=== PATIENT | female | born 1955 | race Caucasian/White ===

== ENCOUNTER 2016-11-01 22:22 | Inpatient (IN) | payer BC ==
[~2016-11-01] VITALS: Ht 154.9 cm; Wt 86.0 kg
[~2016-11-01 22:22] MED LIST: PROM25TA5 PO; Z.0.NO CURRENT MEDS
[2016-11-01 22:24] VITALS: BP 132/83; PULSE 116; RESP 18; TEMP 99.5; O2SAT 96
[2016-11-01] MEDS ORDERED: CALC1TAB87 PO (22:41)
[2016-11-01] MEDS ORDERED: ALEV220T14 PO (22:41)
[2016-11-01 22:43] VITALS: BP 122/72; PULSE 124; RESP 18; O2SAT 95
[2016-11-01] MEDS ORDERED: ACETAMINOPHEN 325 MG TAB PO ONE (22:45)
[2016-11-01] MEDS ORDERED: SODIUM CHLOR 0.9% 1000 ML INJ 1,000 ML IV ONE ×2 (22:45→23:52)
[2016-11-01] MEDS ORDERED: MORPHINE SULFATE 8 MG/ML INJ IV PUSH ONE (22:45)
--- NOTE | 2016-11-01 23:00 | PD ---
HPI . Chills Chief Complaint: General Weakness Time Seen by Provider: 22:35 Travel History International Travel<30 days: No Contact w/Intl Traveler<30days: No Traveled to known affect area: No History of Present Illness HPI Patient presents with chief complaint of shaking chills. Onset was about 30 minutes prior to presentation. The patient states that she had a pain in the middle of her back and stretched. She had the onset of shaking chills following the stretching. She really doesn't have any other symptoms. She denies any cold symptoms. She reports chronic shortness of breath but no change in her breathing and no cough. She denies any urinary tract symptoms. She denies any GI symptoms. She notes no exacerbating or relieving factors. She reports that the chills are severe. [facility] Past Medical History Headaches: Yes Musculoskeletal: Yes (OSTEOPOROSIS) ?: Not Menopausal: Yes Tubal Ligation: Yes Past Surgical History Cholecystectomy: Yes Social History Alcohol Use: No Tobacco Use: Yes (E CIG) Substance Use: No Allergies-Medications (Allergen,Severity, Reaction): Coded Allergies: No Known Allergies (Verified , 11/01/16) Reported Meds & Prescriptions Reported Meds & Active Scripts Active Reported Calcium 600 with Vitamin D (Calcium Carbonate-Cholecalciferol) 600-400 mg-Unit Tab 1 Tab PO DAILY Aleve Arthritis (Naproxen Sodium) 220 Mg Tab 220 Mg PO BID Review of Systems Except as stated in HPI: all other systems reviewed are Neg General / Constitutional: Positive: Chills, No: Fever Eyes: No: Drainage, Redness HENT: No: Headaches, Sore Throat, Rhinorrhea, Congestion Cardiovascular: No: Chest Pain or Discomfort Respiratory: Positive: Shortness of Breath, No: Cough Gastrointestinal: No: Nausea, Vomiting, Diarrhea, Abdominal Pain Genitourinary: No: Urgency, Frequency, Dysuria Musculoskeletal: Positive: Myalgias (back pain) Physical Exam Narrative Vital Signs Date Time Temp Pulse Resp B/P Pulse Ox O2 Delivery O2 Flow Rate FiO2 11/01/16 22:35 120 18 96 11/01/16 22:24 99.5 116 18 132/83 96 GENERAL: Patient is awake and alert and in no acute distress. SKIN: Warm and dry. HEAD: Atraumatic. Normocephalic. EYES: Pupils equal and round. Extraocular movements are intact. ENT: No nasal bleeding or discharge. Mucous membranes pink and moist. NECK: Trachea midline. Neck is supple. CARDIOVASCULAR: She has a resting tachycardia. Heart sounds are normal. RESPIRATORY: No accessory muscle use. She is hyperventilating. GASTROINTESTINAL: Abdomen soft, non-tender, nondistended. MUSCULOSKELETAL: No obvious deformities. No edema. NEUROLOGICAL: Awake and alert. No obvious cranial nerve deficits. Motor grossly within normal limits. Normal speech. PSYCHIATRIC: Appropriate mood and affect; insight and judgment normal. Data Data Last Documented VS Vital Signs Date Time Temp Pulse Resp B/P Pulse Ox O2 Delivery O2 Flow Rate FiO2 11/01/16 22:35 120 18 96 11/01/16 22:24 99.5 132/83 Orders Complete Blood Count With Diff (11/01/16 22:40) Comprehensive Metabolic Panel (11/01/16 22:40) Lactic Acid Sepsis Protocol (11/01/16 22:40) Urinalysis - C+S If Indicated (11/01/16 22:40) Blood Culture (11/01/16 22:40) Chest, Single Ap (11/01/16 22:40) Iv Access Insert/Monitor (11/01/16 22:40) Acetaminophen (Tylenol) (11/01/16 22:45) Sodium Chlor 0.9% 1000 Ml Inj (Ns 1000 M (11/01/16 22:45) Morphine Inj (Morphine Inj) (11/01/16 22:45) MDM Medical Decision Making Medical Screen Exam Complete: Yes Emergency Medical Condition: Yes Differential Diagnosis Differential diagnosis of fever includes but is not limited to viral illness, strep throat, otitis media, pneumonia, sepsis, UTI Narrative Course This patient presents with chief complaint of the acute onset of shaking chills. I have ordered a septic workup. Her care is being turned over to Dr. Nj pending her septic workup. Sepsis Criteria SIRS Criteria (2 or more): Heart rate over 90 Diagnosis Primary Impression: Chills Condition: Stable Charlee Bob MD Nov 01, 2016 23:00
--- NOTE | 2016-11-01 23:31 | RADRPT ---
EXAM DATE/TIME: 11/01/2016 22:46 [place] COMPARISON: No previous studies available for comparison. INDICATIONS : Shortness of breath. MEDICAL HISTORY : None. SURGICAL HISTORY : None. ENCOUNTER: Initial ACUITY: 1 day PAIN SCORE: 0/10 LOCATION: Bilateral chest FINDINGS: A single view of the chest demonstrates the lungs to be symmetrically aerated without evidence of mas s, infiltrate or effusion. The cardiomediastinal contours are unremarkable. Osseous structures are intact. CONCLUSION: No acute intrathoracic disease. Loco Root MD on November 01, 2016 at 23:30 Board Certified Radiologist. This report was verified electronically.
[2016-11-01 23:38] LABS: AUTOMATED NEUTROPHIL # 12.9 TH/MM3 (1.8-7.7); BASOPHIL # 0.2 TH/MM3 (0-0.2); BASOPHIL % 1.6 % (0.0-2.0); EOSINOPHIL # 0.1 TH/MM3 (0-0.4); EOSINOPHIL % 0.7 % (0.0-4.0); HEMATOCRIT 44.5 % (35.0-46.0); LYMPH % 8.9 % (9.0-44.0); LYMPHOCYTE # 1.3 TH/MM3 (1.0-4.8); MEAN CELL VOLUME 89.9 FL (80.0-100.0); MEAN CORPUSCULAR HEMOGLOBIN 29.6 PG (27.0-34.0); MEAN CORPUSCULAR HGB CONC 32.9 % (32.0-36.0); MONO % 1.6 % (0.0-8.0); NEUT % 87.2 % (16.0-70.0); PLATELET COUNT 231 TH/MM3 (150-450); RED BLOOD COUNT 4.94 MIL/MM3 (4.00-5.30); RED CELL DISTRIBUTION WIDTH 13.3 % (11.6-17.2); WHITE BLOOD COUNT 14.7 TH/MM3 (4.0-11.0)
[2016-11-01 23:43] VITALS: BP 78/56; PULSE 110; RESP 18; TEMP 99.4; O2SAT 94
[2016-11-01 23:46] LABS: HEMO FLAGS AUTO DIFF
[2016-11-01 23:46] LABS: BLOOD, URINE NEG (NEG); GLUCOSE,URINE NEG (NEG); KETONE, URINE NEG (NEG); NITRITE,URINE NEG (NEG); PH, URINE 5.5 (5.0-8.5)
[2016-11-01 23:47] VITALS: BP 86/59; PULSE 112; RESP 16; O2SAT 94
[2016-11-01 23:51] LABS: METHOD OF COLLECTION CLEAN CATCH; URINE COLOR YELLOW (YELLW/STRAW)
[2016-11-01 23:52] LABS: MUCUS URINE OCC /lpf (OCC)
[2016-11-01] MEDS ORDERED: SODIUM CHLOR 0.9% 1000 ML INJ 700 ML IV ONE (23:52)
[2016-11-01 23:53] LABS: CHLORIDE 112 MEQ/L (98-107); POTASSIUM 3.8 MEQ/L (3.5-5.1); SODIUM (NA) 145 MEQ/L (136-145)
[2016-11-01 23:53] LABS: BACTERIA, URINE MANY /hpf; COMMENT (UR) CULTURE INDICATED; CULTURE IF INDICATED CULTURE INDICATED; SQUAMOUS EPITHELIAL CELL URINE 0-5 /hpf (0-5); WBC, URINE 15-19 /hpf (0-5)
[2016-11-01 23:56] LABS: ANION GAP 7 MEQ/L (5-15); BICARBONATE 25.9 MEQ/L (21.0-32.0)
[2016-11-01 23:57] LABS: BLOOD UREA NITROGEN 12 MG/DL (7-18)
[2016-11-01 23:59] LABS: ALT (GPT) 22 U/L (10-53)
[2016-11-02] VITALS (17 sets, daily range): BP systolic 68–154; BP diastolic 51–92; PULSE 84–98; RESP 16–20; TEMP 97–98.7; O2SAT 93–97
[2016-11-02] LABS: AST (GOT) 16 U/L (15-37); GLOMERULAR FILTRATION RATE 61 ML/MIN (>89)
[2016-11-02] MEDS ORDERED: cefTRIAXone INJ 1,000 MG in SODIUM CHLORIDE 0.9% INJ 100 ML IV ONE ×2
[2016-11-02 00:01] LABS: TOTAL BILIRUBIN ADULT 0.3 MG/DL (0.2-1.0)
[2016-11-02 00:02] LABS: ALKALINE PHOSPHATASE 109 U/L (45-117)
[2016-11-02 00:03] LABS: BANDS 5 % (0-6); BASOPHILS 1 % (0-2); NEUTROPHIL # MANUAL DIFF 13.4 TH/MM3 (1.8-7.7); POLYS (SEG NEUTROPHILS) 86 % (16-70); WBC DIFF SAMPLE 100
[2016-11-02 00:04] LABS: PLATELET ESTIMATE SMEAR NORMAL (NORMAL); PLATELET MORPHOLOGY NORMAL (NORMAL); SCAN/DIFF FINAL DIFF MANUAL
[2016-11-02] MEDS ORDERED: SODIUM CHLORIDE 0.9% FLUSH 10 ML FLUSH IV FLUSH PRN (01:15)
[2016-11-02] MEDS ORDERED: NALOXONE HCL 0.4 MG/ML AMP IV PRN (01:15)
[2016-11-02 01:26] LABS: LACTIC ACID GHOST NOT REPORTABLE
[2016-11-02] MEDS ORDERED: SODIUM CHLOR 0.9% 1000 ML INJ 1,000 ML IV ONE (02:15)
[2016-11-02] MEDS: SODIUM CHLORIDE 0.9% FLUSH 10 ML FLUSH IV FLUSH SCH ×2 (08:36→20:15)
--- NOTE | 2016-11-02 08:54 | HHI.HP ---
[facility] Latasha Pitt Admission Diagnosis sepsis, pyelonephritis Diagnoses: (1) Severe sepsis Diagnosis: Principal (2) Pyelonephritis Diagnosis: Principal (3) Leukocytosis Diagnosis: Principal (4) Hyperglycemia Diagnosis: Principal Chief Complaint: Rigors Travel History International Travel<30 Days: No Contact w/Intl Traveler <30 Da: No Traveled to Known Affected Are: No Sepsis Criteria SIRS Criteria (2 or more): Heart rate over 90, WBC > 27616, < 4000 or > 10% bands Sepsis Criteria (SIRS+source): Infect source susp/known Severe Sepsis (+one): Lactate >2 Criteria Outcome: Meets severe sepsis criteria History of Present Illness Written by Frankie Wang, acting as scribe for Dr. Mayes on 11/02/16 at 10: 22. 61-year-old female with known history of hyperlipidemia, right carotid stenosis who presented to the hospital because of rigors. Patient states that over the last 2 weeks she has been having back pain that is worsened whenever she is sitting without support. She states that the pain is intermittent and she does get episodes of sharp stabbing pain that last for a couple seconds at a time. Patient does have history of hyperlipidemia in which she recently started on statin approximately one month ago. The patient does have urinary incontinence when she has noticed mild worsening over the last couple weeks as well. Patient was sitting in a chair working yesterday and she went to stretch her back because she was having pain in her lower left back and she developed sudden rigors. Because of the rigors she came to the hospital for evaluation. Patient found to have multiple abnormalities to include leukocytosis, tachycardia, urinary tract infection, lactic acid level elevation which meets criteria for severe sepsis. Because of those reasons is recommended by ER physician that the patient be admitted for further evaluation and management. Patient denied any fever, cough, congestion, abdominal pain, dysuria. Review of Systems Constitutional: COMPLAINS OF: Chills, DENIES: Diaphoretic episodes, Fatigue, Fever, Weight gain, Weight loss, Dizziness, Change in appetite, Night Sweats Eyes: DENIES: Blurred vision, Diplopia, Eye inflammation, Eye pain, Vision loss , Double Vision Ears, nose, mouth, throat: COMPLAINS OF: Vertigo, DENIES: Hearing loss, Nasal discharge, Throat pain, Ear Pain, Running Nose, Sinus Pain Respiratory: DENIES: Apneas, Cough, Snoring, Wheezing, Hemoptysis, Sputum production, Shortness of breath Cardiovascular: DENIES: Chest pain, Palpitations, Syncope, Dyspnea on Exertion , PND, Lower Extremity Edema, Orthopnea, Claudication Gastrointestinal: DENIES: Abdominal pain, Black stools, Bloody stools, Constipation, Diarrhea, Nausea, Vomiting, Difficulty Swallowing, Anorexia Genitourinary: COMPLAINS OF: Urinary frequency Musculoskeletal: COMPLAINS OF: Back pain Neurologic: DENIES: Abnormal gait, Headache, Localized weakness, Paresthesias, Speech Problems, Tremor, Poor Balance Past Family Social History Past Medical History Right carotid stenosis Hyperlipidemia History of tobacco use Urinary incontinence Osteoporosis Past Surgical History Tubal ligation Cholecystectomy Reported Medications Reported Meds & Active Scripts Active Reported Calcium 600 with Vitamin D (Calcium Carbonate-Cholecalciferol) 600-400 mg-Unit Tab 1 Tab PO DAILY Aleve Arthritis (Naproxen Sodium) 220 Mg Tab 220 Mg PO BID Allergies: Coded Allergies: No Known Allergies (Verified , 11/01/16) Family History Reviewed is significant for lung disease, COPD with mother and brothers. All with history of tobacco use. Social History Patient quit smoking 3 years ago, prior to that she smoked one pack a cigarettes a day since she was 14 years old. Denies any alcohol or illicit drugs Physical Exam Vital Signs Vital Signs Date Time Temp Pulse Resp B/P Pulse Ox O2 Delivery O2 Flow Rate FiO2 11/02/16 08:00 97.0 85 18 126/67 96 11/02/16 03:38 84 11/02/16 03:30 98.0 84 20 119/63 93 11/02/16 02:51 16 130/58 95 Room Air 11/02/16 02:49 88 16 81/53 96 Room Air 11/02/16 02:48 88 16 124/58 95 Room Air 11/02/16 02:42 92 16 68/58 95 Room Air 11/02/16 02:13 98.4 95 16 100/70 95 Room Air 11/02/16 02:00 94 16 95 11/02/16 01:50 92 16 93/51 95 Room Air 11/02/16 01:13 94 16 94/59 95 Room Air 11/02/16 00:43 94 16 99/72 95 Room Air 11/02/16 00:24 97 16 97/67 96 Room Air 11/02/16 00:13 98 16 89/60 95 Room Air 11/01/16 23:47 112 16 86/59 94 Room Air 11/01/16 23:43 99.4 110 18 78/56 94 Room Air 11/01/16 22:43 124 18 122/72 95 Room Air 11/01/16 22:35 120 18 96 11/01/16 22:24 99.5 116 18 132/83 96 Physical Exam GENERAL: Well-developed, well-nourished, in no acute distress. alert and orientated HEENT: Head is normocephalic without any lesions or masses noted. Facial features are symmetric. Eyes: Pupils equal round reactive to light. Extraocular muscles are intact. Conjunctivae were clear. Oropharyngeal: Pharynx without any erythema edema. Tongue is midline without deviation. Buccal mucosa is moist without any masses or lesions NECK: Supple without any masses. Trachea midline no deviation. No JVD, no bruits are appreciated CARDIAC: Regular rhythm, regular rate. S1/S2 are heard. No murmurs gallops or rubs. LUNGS: Clear to auscultation bilaterally. No wheeze, rhonchi or rales. No use of accessory muscles on inspiration or expiration. ABDOMEN: Soft, nontender. Nondistended. Bowel sounds heard in all 4 quadrants. No organomegaly or masses. Negative rebound, negative guarding EXTREMITIES: No edema, pulses are equal bilaterally. No cyanosis or clubbing NEUROLOGY: Mood and affect appear appropriate. Cranial nerves II through XII grossly intact. Muscle strength 5/5 in upper and lower extremities bilaterally. Deep tendon reflexes are 2+ in upper and lower extremities bilaterally. Laboratory Laboratory Tests Test 11/01/16 11/01/16 11/01/16 11/02/16 22:55 23:05 23:38 01:45 Urine Collection Type CLEAN CATCH Urine Color YELLOW Urine Turbidity SLIGHT Urine pH 5.5 Urine Specific [place] 1.018 Urine Protein TRACE Urine Glucose (UA) NEG Urine Ketones NEG Urine Occult Blood NEG Urine Nitrite NEG Urine Bilirubin NEG Urine Leukocyte Esterase TRACE Urine WBC 15-19 Urine WBC Clumps OCC Urine Squamous Epithelial 0-5 Cells Urine Bacteria MANY Urine Mucus OCC Microscopic Urinalysis Comment CULTURE INDICATED White Blood Count 14.7 Red Blood Count 4.94 Hemoglobin 14.6 Hematocrit 44.5 Mean Corpuscular Volume 89.9 Mean Corpuscular Hemoglobin 29.6 Mean Corpuscular Hemoglobin 32.9 Concent Red Cell Distribution Width 13.3 Platelet Count 231 Mean Platelet Volume 10.6 Neutrophils (%) (Auto) 87.2 Lymphocytes (%) (Auto) 8.9 Monocytes (%) (Auto) 1.6 Eosinophils (%) (Auto) 0.7 Basophils (%) (Auto) 1.6 Neutrophils # (Auto) 12.9 Lymphocytes # (Auto) 1.3 Monocytes # (Auto) 0.2 Eosinophils # (Auto) 0.1 Basophils # (Auto) 0.2 CBC Comment AUTO DIFF Differential Total Cells 100 Counted Neutrophils % (Manual) 86 Band Neutrophils % 5 Lymphocytes % 6 Monocytes % 2 Basophils % 1 Neutrophils # (Manual) 13.4 Differential Comment FINAL DIFF MANUAL Platelet Estimate NORMAL Platelet Morphology Comment NORMAL Red Cell Morphology Comment NORMAL Lactic Acid Level 2.1 1.5 Sodium Level 145 Potassium Level 3.8 Chloride Level 112 Carbon Dioxide Level 25.9 Anion Gap 7 Blood Urea Nitrogen 12 Creatinine 0.93 Estimat Glomerular Filtration 61 Rate Random Glucose 153 Calcium Level 8.7 Total Bilirubin 0.3 Aspartate Amino Transf 16 (AST/SGOT) Alanine Aminotransferase 22 (ALT/SGPT) Alkaline Phosphatase 109 Total Protein 6.5 Albumin 3.1 Date/Time Procedure Status Source Growth 11/01/16 23:32 Aerobic Blood Culture Received Blood Peripheral Pending 11/01/16 23:32 Anaerobic Blood Culture Received Blood Peripheral Pending 11/01/16 22:55 Urine Culture Received Urine Clean Catch Pending Result Diagram: 11/01/16 2305 11/01/16 2338 Imaging Last Impressions Chest X-Ray 11/01/16 2240 Signed Impressions: Service Date/Time: Tuesday, November 01, 2016 22:46 - CONCLUSION: No acute intrathoracic disease. Loco Root MD Septic Shock Reassessment Heart: Regular rate and rhythm Lungs: Clear Skin: Warm Peripheral Pulses: Bounding Right Radial Bounding Left Radial Capillary Refill: Brisk, <2 seconds Assessment and Plan Assessment and Plan Severe sepsis Patient meets criteria with leukocytosis, tachycardia, urinary tract infection , likely pyelonephritis, lactic acidosis Patient did have hypotension on presentation and received 3 L of normal saline bolus with improvement of blood pressure Continue IV fluid Patient started on empirical antibiotics to include Rocephin Chest x-ray is unremarkable for any acute abnormality Blood cultures are pending Urine culture is pending UTI suspect Pyelonephritis Continue antibiotics as above Continue monitor urine culture for appropriate antibiotics Leukocytosis Secondary to above Monitor CBC Hyperglycemia Obtain hemoglobin A1c Monitor glucoses start sliding scale insulin if needed Hyperlipidemia Resume statin DVT prevention Subcutaneous Lovenox This note was transcribed by scribe [Frankie Wang]. I, Dr. Paul Mayes personally performed the history, physical exam, and medical decision making; and confirmed the accuracy of the information in the transcribed note. Authenticated by Dr. Paul Mayes on 11/02/16 at 17:41. Physician Certification 2 Midnight Certification Type: Admission for Inpatient Services Order for Inpatient Services The services are ordered in accordance with Medicare regulations or non- Medicare payer requirements, as applicable. In the case of services not specified as inpatient-only, they are appropriately provided as inpatient services in accordance with the 2-midnight benchmark. Estimated LOS (days): 2 days is the estimated time the patient will need to remain in the hospital, assuming treatment plan goals are met and no additional complications. Post-Hospital Plan: Not yet determined Frankie Wang Nov 02, 2016 08:54 Paul Mayes MD Nov 02, 2016 17:41
[2016-11-02] MEDS ORDERED: MAGNESIUM HYDROXIDE SUSP 30 ML CUP PO PRN (09:00)
[2016-11-02] MEDS ORDERED: DOCUSATE SODIUM 100 MG CAP PO PRN (09:00)
[2016-11-02] MEDS ORDERED: ONDANSETRON HCL 4 MG/2 ML VIAL IV PRN (09:00)
[2016-11-02] MEDS ORDERED: TEMAZEPAM 15 MG CAP PO PRN (09:00)
[2016-11-02] MEDS ORDERED: ACETAMINOPHEN 325 MG TAB PO PRN (09:00)
[2016-11-02 09:39] LABS: AUTOMATED NEUTROPHIL # 8.1 TH/MM3 (1.8-7.7); BASOPHIL % 0.4 % (0.0-2.0); EOSINOPHIL # 0.1 TH/MM3 (0-0.4); EOSINOPHIL % 1.3 % (0.0-4.0); HEMATOCRIT 39.7 % (35.0-46.0); HEMO FLAGS DIFF FINAL; LYMPH % 21.3 % (9.0-44.0); LYMPHOCYTE # 2.4 TH/MM3 (1.0-4.8); MEAN CELL VOLUME 90.1 FL (80.0-100.0); MEAN CORPUSCULAR HEMOGLOBIN 29.7 PG (27.0-34.0); MEAN CORPUSCULAR HGB CONC 32.9 % (32.0-36.0); MONO % 5.7 % (0.0-8.0); NEUT % 71.3 % (16.0-70.0); PLATELET COUNT 208 TH/MM3 (150-450); RED CELL DISTRIBUTION WIDTH 13.4 % (11.6-17.2); WHITE BLOOD COUNT 11.2 TH/MM3 (4.0-11.0)
[2016-11-02] MEDS: NS + KCL 20 MEQ INJ 1,000 ML IV SCH ×2 (09:41→20:15)
[2016-11-02] MEDS: ENOXAPARIN SODIUM 40 MG/0.4 ML SYRINGE SQ SCH (09:42)
[2016-11-02] MEDS: cefTRIAXone INJ 1,000 MG in SODIUM CHLORIDE 0.9% INJ 100 ML IV SCH (13:49)
[2016-11-02 16:01] LABS: HEMOGLOBIN A1b 1.7 %; HEMOGLOBIN Ao 85.5 %; HEMOGLOBIN LA1C 1.8 %; HEMOGLOBIN P3 3.7 %
[2016-11-02] MEDS: traMADol HCL 50 MG TAB PO PRN (17:27)
[2016-11-02] MEDS: CALCIUM CARBONATE 500 MG CHEWABLE TAB CHEW SCH (20:15)
[2016-11-03] VITALS: BP 119/62; PULSE 84; RESP 18; TEMP 97.3; O2SAT 95
[2016-11-03] MEDS: cefTRIAXone INJ 1,000 MG in SODIUM CHLORIDE 0.9% INJ 100 ML IV SCH (00:35)
[2016-11-03 04:00] VITALS: BP 111/69; PULSE 88; RESP 18; TEMP 97.1; O2SAT 95
[2016-11-03 06:37] LABS: AUTOMATED NEUTROPHIL # 3.9 TH/MM3 (1.8-7.7); BASOPHIL % 0.5 % (0.0-2.0); EOSINOPHIL # 0.1 TH/MM3 (0-0.4); EOSINOPHIL % 0.9 % (0.0-4.0); HEMATOCRIT 38.5 % (35.0-46.0); HEMO FLAGS DIFF FINAL; LYMPH % 35.2 % (9.0-44.0); LYMPHOCYTE # 2.5 TH/MM3 (1.0-4.8); MEAN CELL VOLUME 89.1 FL (80.0-100.0); MEAN CORPUSCULAR HEMOGLOBIN 29.5 PG (27.0-34.0); MEAN CORPUSCULAR HGB CONC 33.1 % (32.0-36.0); MONO % 8.5 % (0.0-8.0); NEUT % 54.9 % (16.0-70.0); PLATELET COUNT 176 TH/MM3 (150-450); RED BLOOD COUNT 4.33 MIL/MM3 (4.00-5.30); RED CELL DISTRIBUTION WIDTH 12.9 % (11.6-17.2); WHITE BLOOD COUNT 7.1 TH/MM3 (4.0-11.0)
[2016-11-03 06:55] LABS: BICARBONATE 24.2 MEQ/L (21.0-32.0)
[2016-11-03 08:00] VITALS: PULSE 88
[2016-11-03] MEDS: NS + KCL 20 MEQ INJ 1,000 ML IV SCH (08:50)
--- NOTE | 2016-11-03 08:52 | HHI.PR ---
Subjective Remarks feels better today. pain has much improved. no fever or chills. wants to go home today. Objective Vitals Vital Signs Date Time Temp Pulse Resp B/P Pulse Ox O2 Delivery O2 Flow Rate FiO2 11/03/16 04:00 97.1 88 18 111/69 95 11/03/16 00:00 97.3 84 18 119/62 95 11/02/16 20:14 93 11/02/16 20:00 98.2 89 18 132/66 95 11/02/16 16:00 98.7 93 18 154/92 97 11/02/16 12:00 97.8 89 18 139/72 96 I/O 11/02/16 11/02/16 11/02/16 11/03/16 11/03/16 11/03/16 07:00 15:00 23:00 07:00 15:00 23:00 Intake Total 3800 ml 480 ml 219 ml 690 ml Balance 3800 ml 480 ml 219 ml 690 ml Intake Oral 480 ml IV Total 3800 ml 219 ml 690 ml # Voids 1 6 1 # Bowel Movements 0 Result Diagram: 11/03/16 0540 11/03/16 0540 Imaging Last Impressions Chest X-Ray 11/01/16 2240 Signed Impressions: Service Date/Time: Tuesday, November 01, 2016 22:46 - CONCLUSION: No acute intrathoracic disease. Loco Root MD Objective Remarks GENERAL: This is a well-nourished, well-developed patient, in no apparent distress. CARDIOVASCULAR: Regular rate and regular rhythm without murmurs, gallops, or rubs. RESPIRATORY: Clear to auscultation. Breath sounds equal bilaterally. No wheezes , rales, or rhonchi. GASTROINTESTINAL: Abdomen soft, non-tender, nondistended. Normal, active bowel sounds MUSCULOSKELETAL: Extremities without clubbing, cyanosis, or edema. NEURO: Alert & Oriented x4 to person, place, time, situation. Moves all ext x4 Procedures none Medications and IVs Current Medications Acetaminophen 650 mg 650 mg ONCE ONCE PO Last administered on 11/01/16t 23:21 ; Start 11/01/16 at 22:45; Stop 11/01/16 at 22:46; Status DC Sodium Chloride (NS 1000 ml Inj) 1,000 ml @ 999 mls/hr BOLUS ONCE IV Last administered on 11/01/16 23:20; Start 11/01/16 at 22:45; Stop 11/01/16 at 23:45 ; Status DC Morphine Sulfate 4 mg 4 mg ONCE ONCE IV PUSH ; Start 11/01/16 at 22:45; Stop at 23:54; Status DC Sodium Chloride 1,000 ml @ 1,000 mls/hr Q1H ONCE IV Last administered on 23:56; Start 11/01/16 at 23:52; Stop 11/02/16 at 00:51; Status DC Sodium Chloride 700 ml @ 1,000 mls/hr Q42M ONCE IV Last administered on 00:23; Start 11/01/16 at 23:52; Stop 11/02/16 at 00:33; Status DC Ceftriaxone Sodium/Sodium Chloride (Rocephin Inj/NS Inj) 100 ml @ 200 mls/hr ONCE ONCE IV Last administered on 11/02/16 00:24; Start 11/02/16 at 00:00; Stop 11/02/16 at 00:29; Status DC Sodium Chloride (NS Flush) 2 ml UNSCH PRN IV FLUSH FLUSH AFTER USING IV ACCESS ; Start 11/02/16 at 01:15 Sodium Chloride (NS Flush) 2 ml BID IV FLUSH ; Start 11/02/16 at 09:00 Naloxone HCl 0.4 mg 0.4 mg UNSCH PRN IV SEE LABEL COMMENTS; Start 11/02/16 at 01:15 Ceftriaxone Sodium 1000 mg/ Sodium Chloride 100 ml @ 200 mls/hr Q12H IV Last administered on 11/03/16 00:35; Start 11/02/16 at 13:00 Sodium Chloride (NS 1000 ml Inj) 1,000 ml @ 999 mls/hr BOLUS ONCE IV Last administered on 11/02/16 02:10; Start 11/02/16 at 02:15; Stop 11/02/16 at 03:15 ; Status DC Enoxaparin Sodium (Lovenox Inj) 40 mg Q24H SQ Last administered on 11/02/16 09 :42; Start 11/02/16 at 09:00 Acetaminophen (Tylenol) 650 mg Q4H PRN PO Temp > 100.4 Last administered on 7/ 19/17at 00:36; Start 11/02/16 at 09:00 Ondansetron HCl (Zofran Inj) 4 mg Q6H PRN IV NAUSEA Last administered on 17:27; Start 11/02/16 at 09:00 Docusate Sodium (Colace) 100 mg BID PRN PO CONSTIPATION; Start 11/02/16 at 09: 00 Magnesium Hydroxide (Milk Of Magnesia Liq) 30 ml DAILY PRN PO for Severe Constipation; Start 11/02/16 at 09:00 Temazepam 15 mg 15 mg HS PRN PO INSOMNIA; Start 11/02/16 at 09:00 Potassium Chloride/Sodium Chloride (NS + KCl 20 Meq Inj) 1,000 ml @ 84 mls/hr [id number] IV Last administered on 11/02/16 20:15; Start 11/02/16 at 09:00 Tramadol HCl (Ultram) 50 mg Q8H PRN PO pain 5-10 Last administered on 17:27; Start 11/02/16 at 16:45 Pantoprazole Sodium (Protonix) 40 mg DAILY PO ; Start 11/03/16 at 09:00 Calcium Carbonate (Tums Chew) 500 mg Q12HR CHEW Last administered on 11/02/16 20:15; Start 11/02/16 at 21:00 A/P Assessment and Plan A/P Severe sepsis UTI suspect Pyelonephritis UC with gram negative sara -blood cultures negative -switch to po antibiotic Leukocytosis -resolved Hyperglycemia A1c 5.8 Hyperlipidemia Resume statin upo discharge DVT prevention Subcutaneous Lovenox Discharge Planning dc home today with f/u with pcp. see med list. d/s the patient. Felecia Snyder MD Nov 03, 2016 08:52
[2016-11-03 08:53] VITALS: BP 114/70; PULSE 81; RESP 15; TEMP 96.8; O2SAT 95
[2016-11-03] MEDS ORDERED: CIPR-9 PO (08:53)
--- NOTE | 2016-11-03 08:53 | HHI.DCPOC ---
Discharge Care Plan Diagnosis: (1) Pyelonephritis Your Health Problems Are: Inflammation Goals to Promote Your Health * To prevent worsening of your condition and complications * To maintain your health at the optimal level Directions to Meet Your Goals Take your medications as prescribed Follow your dietary instruction Follow activity as directed Keep your appointments as scheduled Take your immunizations and boosters as scheduled If your symptoms worsen call your PCP, if no PCP go to Urgent Care Center or Emergency Room Smoking is Dangerous to Your Health. Avoid second hand smoke Call the 24-hour hour crisis hotline for domestic abuse at Felecia Snyder MD Nov 03, 2016 08:53
--- NOTE | 2016-11-03 08:54 | HHI.DS ---
Discharge Summary Admission Date Nov 02, 2016 at 00:42 Discharge Date: Nov 03, 2016 Admitting Diagnosis sepsis, pyelonephritis (1) Severe sepsis ICD Code: A41.9 Diagnosis: Principal (2) Pyelonephritis ICD Code: N12 Diagnosis: Principal (3) Leukocytosis ICD Code: D72.829 Diagnosis: Principal (4) Hyperglycemia ICD Code: R73.9 Diagnosis: Principal Procedures none Brief History - From Admission Written by Frankie Wang, acting as scribe for Dr. Mayes on 11/02/16 at 10: 22. 61-year-old female with known history of hyperlipidemia, right carotid stenosis who presented to the hospital because of rigors. Patient states that over the last 2 weeks she has been having back pain that is worsened whenever she is sitting without support. She states that the pain is intermittent and she does get episodes of sharp stabbing pain that last for a couple seconds at a time. Patient does have history of hyperlipidemia in which she recently started on statin approximately one month ago. The patient does have urinary incontinence when she has noticed mild worsening over the last couple weeks as well. Patient was sitting in a chair working yesterday and she went to stretch her back because she was having pain in her lower left back and she developed sudden rigors. Because of the rigors she came to the hospital for evaluation. Patient found to have multiple abnormalities to include leukocytosis, tachycardia, urinary tract infection, lactic acid level elevation which meets criteria for severe sepsis. Because of those reasons is recommended by ER physician that the patient be admitted for further evaluation and management. Patient denied any fever, cough, congestion, abdominal pain, dysuria. CBC/BMP: 11/03/16 0540 11/03/16 0540 Significant Findings Laboratory Tests Test 11/01/16 11/01/16 11/01/16 11/02/16 22:55 23:05 23:38 09:15 Urine Leukocyte Esterase TRACE (NEG) Urine WBC 15-19 /hpf (0-5) Urine WBC Clumps OCC (NONE) Urine Bacteria MANY /hpf (NONE) White Blood Count 14.7 TH/MM3 11.2 TH/MM3 (4.0-11.0) (4.0-11.0) Neutrophils (%) (Auto) 87.2 % 71.3 % (16.0-70.0) (16.0-70.0) Lymphocytes (%) (Auto) 8.9 % (9.0-44.0) Neutrophils # (Auto) 12.9 TH/MM3 8.1 TH/MM3 (1.8-7.7) (1.8-7.7) Neutrophils % (Manual) 86 % (16-70) Lymphocytes % 6 % (9-44) Neutrophils # (Manual) 13.4 TH/MM3 (1.8-7.7) Lactic Acid Level 2.1 mmol/L (0.4-2.0) Chloride Level 112 MEQ/L (98-107) Estimat Glomerular Filtration 61 ML/MIN (>89) Rate Random Glucose 153 MG/DL (74-106) Albumin 3.1 GM/DL (3.4-5.0) Test 11/03/16 05:40 Monocytes (%) (Auto) 8.5 % (0.0-8.0) Chloride Level 114 MEQ/L (98-107) Estimat Glomerular Filtration 77 ML/MIN (>89) Rate Calcium Level 8.1 MG/DL (8.5-10.1) Imaging Last Impressions Chest X-Ray 11/01/16 2240 Signed Impressions: Service Date/Time: Tuesday, November 01, 2016 22:46 - CONCLUSION: No acute intrathoracic disease. Loco Root MD PE at Discharge GENERAL: This is a well-nourished, well-developed patient, in no apparent distress. CARDIOVASCULAR: Regular rate and regular rhythm without murmurs, gallops, or rubs. RESPIRATORY: Clear to auscultation. Breath sounds equal bilaterally. No wheezes , rales, or rhonchi. GASTROINTESTINAL: Abdomen soft, non-tender, nondistended. Normal, active bowel sounds MUSCULOSKELETAL: Extremities without clubbing, cyanosis, or edema. NEURO: Alert & Oriented x4 to person, place, time, situation. Moves all ext x4 Hospital Course Severe sepsis UTI suspect Pyelonephritis UC with gram negative sara -blood cultures negative -switch to po antibiotic Leukocytosis -resolved Hyperglycemia A1c 5.8 Hyperlipidemia Resume statin upo discharge DVT prevention Subcutaneous Lovenox Pt Condition on Discharge: Good Discharge Disposition: Discharge Home Discharge Time: <= 30 minutes Discharge Instructions DIET: Follow Instructions for: Heart Healthy Diet Activities you can perform: Regular-No Restrictions Follow up Referrals: PCP Follow-up New Medications: Ciprofloxacin (Cipro) 500 Mg Tab 500 MG PO BID Infection Days 7 Ref 0 TAB Continued Medications: Calcium Carbonate-Cholecalciferol (Calcium 600 with Vitamin D) 600-400 mg-Unit Tab 1 TAB PO DAILY Calcium Supplement Ref 0 TAB Naproxen Sodium (Aleve Arthritis) 220 Mg Tab 220 MG PO BID TAB Felecia Snyder MD Nov 03, 2016 08:54
[2016-11-03] MEDS ORDERED: PANTOPRAZOLE SOD 40 MG DELAYED RELEASE TAB PO SCH (09:00)
[2016-11-03] MEDS: ENOXAPARIN SODIUM 40 MG/0.4 ML SYRINGE SQ SCH (09:00)
[2016-11-03] MEDS: CALCIUM CARBONATE 500 MG CHEWABLE TAB CHEW SCH (09:42)
[2016-11-03] MEDS: traMADol HCL 50 MG TAB PO PRN (09:42)
[2016-11-03] MEDS: SODIUM CHLORIDE 0.9% FLUSH 10 ML FLUSH IV FLUSH SCH (09:44)
== END 2016-11-03 11:13 | disposition home or self-care (01) | DRG 872 ==
LOC: PHED 22:22 → PHEDA 11-02 00:42 → PH3A 11-02 03:13
PROVIDERS: ADMIT Internal Medicine; ATTEND Internal Medicine
DX: A41.59 Other Gram-negative sepsis (principal); E87.2 Acidosis; N12 Tubulo-interstitial nephritis, not specified as acute or chronic; R65.20 Severe sepsis without septic shock; I95.9 Hypotension, unspecified; I65.21 Occlusion and stenosis of right carotid artery; R73.9 Hyperglycemia, unspecified; B96.1 Klebsiella pneumoniae [K. pneumoniae] as the cause of diseases classified elsewhere; E78.5 Hyperlipidemia, unspecified; M81.0 Age-related osteoporosis without current pathological fracture; R32 Unspecified urinary incontinence; Z87.891 Personal history of nicotine dependence
CPT/HCPCS: 71010; 80048; 80053; 81001; 83036; 83605; 85007; 85025; 85027; 87040; 87077; 87086; 87186; 96361; 96365; J0696; J1650; J2405; J3480; J7030

== ENCOUNTER 2017-03-04 18:14 | Inpatient (IN) | payer BC ==
[2017-03-04] VITALS (7 sets, daily range): BP systolic 86–128; BP diastolic 57–81; PULSE 86–103; RESP 14–16; TEMP 98–98.4; O2SAT 96–97
[~2017-03-04] VITALS: Ht 154.9 cm; Wt 87.5 kg
[~2017-03-04 18:14] MED LIST changes: +ALEV220T14 PO; +CALC1TAB87 PO; +CIPR-9 PO; -PROM25TA5 PO; -Z.0.NO CURRENT MEDS
[2017-03-04] MEDS ORDERED: SODIUM CHLORIDE 0.9% FLUSH 10 ML FLUSH IVF PRN (18:30)
[2017-03-04] MEDS ORDERED: SODIUM CHLORID 0.9% 500 ML INJ 500 ML IV ONE (18:30)
[2017-03-04] MEDS ORDERED: ASPIRIN 81 MG CHEW TAB PO ONE (18:30)
[2017-03-04] MEDS ORDERED: IBUP1TAB7 PO (18:31)
[2017-03-04] MEDS ORDERED: VITA100021 SL (18:31)
[2017-03-04] MEDS ORDERED: STATIN (18:31)
--- NOTE | 2017-03-04 18:38 | PD ---
HPI Chief Complaint: Chest Pain Time Seen by Provider: 18:19 Travel History International Travel<30 days: No Contact w/Intl Traveler<30days: No Traveled to known affect area: No History of Present Illness HPI The patient is a 61-year-old female who presents to the emergency department for chest pain and shortness of breath. The patient states she developed symptoms earlier today including chest pain, shortness of breath, and lightheadedness. The patient's initial symptom was a "head cohen" where she felt for rewarming the face and flushed. The patient left work and was [place] and she developed some bilateral thoracic back pain that radiated to the left arm with some shortness of breath. The patient states her heart was "pounding ", and she had a sit down prior to going into the mall. After sitting down her symptoms improve and she returned to the car. However, while ambulating to the car her symptoms returned. The patient sat in the car for approximately 5 minutes and then drove home when her daughter saw her looking "pale as a sheet "and brought her to the emergency department. The patient does state her symptoms were exertional or today and her heart felt like it was beating fast. She states that the thoracic back pain and left arm pain have resolved as well as the shortness of breath. She denies any current headache, nausea, vomiting, or abdominal pain. She does have a history of hyperlipidemia partial right carotid stenosis, however, denies any known history of TIA, CVA, or CAD. She does have a history of tobacco use, quit smoking 3 years ago. She denies any diabetes. Her primary physician is Dr. Bryce Merino. [facility] Past Medical History Arthritis: Yes (thumbs, left middle/ring finger) Cardiovascular Problems: Yes High Cholesterol: Yes Diabetes: No Diminished Hearing: No Gastrointestinal Disorders: Yes Genitourinary: Yes (INCONTINENCE, dribbles, not all new) Headaches: Yes Medical other: Yes (R. CARTOID ARTERY BLOCKAGE) Musculoskeletal: Yes (OSTEOPOROSIS) Neurologic: Yes Psychiatric: No Respiratory: Yes (smoker many years) Migraines: Yes Triglycerides - High: Yes Tetanus Vaccination: Unknown ?: Not Menopausal: Yes : 4 Para: 4 Tubal Ligation: Yes Past Surgical History Abdominal Surgery: Yes (roshan) Cholecystectomy: Yes Gynecologic Surgery: Yes (tubal) Other Surgery: Yes Social History Alcohol Use: No Tobacco Use: No (QUIT 2013) Substance Use: No Allergies-Medications (Allergen,Severity, Reaction): Coded Allergies: No Known Allergies (Verified Allergy, Unknown, 03/04/17) Reported Meds & Prescriptions Reported Meds & Active Scripts Active Reported Ibuprofen 800 Mg Tab 800 Mg PO Vitamin B-12 (Cyanocobalamin) 1,000 Mcg Subl Unknown Dose SL DAILY [Statin] Unknown Dose Review of Systems Except as stated in HPI: all other systems reviewed are Neg HENT: Positive: Lightheadedness, No: Headaches Cardiovascular: Positive: Chest Pain or Discomfort, Tachycardia Respiratory: Positive: Shortness of Breath Gastrointestinal: No: Nausea, Vomiting Musculoskeletal: Positive: Weakness Neurologic: Positive: Dizziness Physical Exam Narrative GENERAL: Awake, alert, pleasant 61-year-old female who appears her stated age and is in no acute respiratory distress. SKIN: Focused skin assessment warm/dry. HEAD: Atraumatic. Normocephalic. EYES: Pupils equal and round. No scleral icterus. No injection or drainage. ENT: No nasal bleeding or discharge. Mucous membranes pink and moist. NECK: Trachea midline. No JVD. CARDIOVASCULAR: Regular, tachycardic with a heart rate of 100. RESPIRATORY: No accessory muscle use. Clear to auscultation. Breath sounds equal bilaterally. GASTROINTESTINAL: Abdomen soft, non-tender, nondistended. No rebound tenderness. MUSCULOSKELETAL: No obvious deformities. No clubbing. No cyanosis. No edema. NEUROLOGICAL: Awake and alert. No obvious cranial nerve deficits. Motor grossly within normal limits. Normal speech. PSYCHIATRIC: Appropriate mood and affect; insight and judgment normal. Data Data Last Documented VS Vital Signs Date Time Temp Pulse Resp B/P (MAP) Pulse Ox O2 Delivery O2 Flow Rate FiO2 03/04/17 21:00 98.0 87 16 128/81 (97) 97 03/04/17 19:36 Nasal Cannula 2.00 Orders Orders Electrocardiogram (03/04/17 18:30) B-Type Natriuretic Peptide (03/04/17 18:30) Ckmb (Isoenzyme) Profile (03/04/17 18:30) Complete Blood Count With Diff (03/04/17 18:30) Comprehensive Metabolic Panel (03/04/17 18:30) D-Dimer (03/04/17 18:30) Magnesium (Mg) (03/04/17 18:30) Prothrombin Time / Inr (Pt) (03/04/17 18:30) Act Partial Throm Time (Ptt) (03/04/17 18:30) Troponin I (03/04/17 18:30) Chest, Single Ap (03/04/17 18:30) Ecg Monitoring (03/04/17 18:30) Bilateral Bp Monitoring (03/04/17 18:30) Iv Access Insert/Monitor (03/04/17 18:30) Oximetry (03/04/17 18:30) Oxygen Administration (03/04/17 18:30) Aspirin Chew (Aspirin Chew) (03/04/17 18:30) Sodium Chloride 0.9% Flush (Ns Flush) (03/04/17 18:30) Sodium Chlorid 0.9% 500 Ml Inj (Ns 500 M (03/04/17 18:30) Cta Thor Abd Aorta W Iv C W3d (03/04/17 ) Iohexol 350 Inj (Omnipaque 350 Inj) (03/04/17 20:00) Admit Order (Ed Use Only) (03/04/17 ) Computer Science Intern / Telemetry [id number] (03/04/17 22:06) Activity Oob With Assistance (03/04/17 22:06) Notify Dr: Other (03/04/17 22:06) Labs Laboratory Tests Test 03/04/17 18:37 White Blood Count 8.5 TH/MM3 Red Blood Count 4.96 MIL/MM3 Hemoglobin 14.8 GM/DL Hematocrit 44.0 % Mean Corpuscular Volume 88.7 FL Mean Corpuscular Hemoglobin 29.8 PG Mean Corpuscular Hemoglobin Concent 33.6 % Red Cell Distribution Width 13.3 % Platelet Count 259 TH/MM3 Mean Platelet Volume 10.1 FL Neutrophils (%) (Auto) 47.7 % Lymphocytes (%) (Auto) 40.6 % Monocytes (%) (Auto) 9.8 % Eosinophils (%) (Auto) 0.9 % Basophils (%) (Auto) 1.0 % Neutrophils # (Auto) 4.0 TH/MM3 Lymphocytes # (Auto) 3.5 TH/MM3 Monocytes # (Auto) 0.8 TH/MM3 Eosinophils # (Auto) 0.1 TH/MM3 Basophils # (Auto) 0.1 TH/MM3 CBC Comment DIFF FINAL Differential Comment Prothrombin Time 10.5 SEC Prothromb Time International Ratio 1.0 RATIO Activated Partial Thromboplast Time 26.8 SEC D-Dimer Quantitative (PE/DVT) 0.34 MG/L FEU Blood Urea Nitrogen 12 MG/DL Creatinine 1.00 MG/DL Random Glucose 99 MG/DL Total Protein 7.2 GM/DL Albumin 3.4 GM/DL Calcium Level 8.2 MG/DL Magnesium Level 2.2 MG/DL Alkaline Phosphatase 119 U/L Aspartate Amino Transf (AST/SGOT) 21 U/L Alanine Aminotransferase (ALT/SGPT) 33 U/L Total Bilirubin 0.2 MG/DL Sodium Level 141 MEQ/L Potassium Level 3.6 MEQ/L Chloride Level 109 MEQ/L Carbon Dioxide Level 23.3 MEQ/L Anion Gap 9 MEQ/L Estimat Glomerular Filtration Rate 56 ML/MIN Total Creatine Kinase 77 U/L Troponin I 0.06 NG/ML B-Type Natriuretic Peptide 101 PG/ML MDM Medical Decision Making Medical Screen Exam Complete: Yes Emergency Medical Condition: Yes Medical Record Reviewed: Yes Interpretation(s) EKG reveals sinus tachycardia with a heart rate of 104. ST depression noted in lead V3, V4, V5, V6, lead 2, and aVF. Differential Diagnosis Differential diagnosis includes pulmonary embolism, STEMI, ACS, deconditioning, dissection, arrhythmia, myocarditis, pericarditis, pericardial effusion. Narrative Course IV was established, labs are drawn and sent, and the patient was placed on cardiac telemetry monitoring and continuous pulse oximetry monitoring. EKG was ordered and interpreted. D-dimer was sent to lab. The patient was administered aspirin 162 mg orally. The patient was signed out to the oncoming physician at 7 PM laboratory evaluation and chest x-ray pending. Diagnosis Primary Impression: NSTEMI (non-ST elevated myocardial infarction) Condition: Stable Carl Tsai MD Mar 04, 2017 18:38
[2017-03-04 18:49] LABS: BASOPHIL # 0.1 TH/MM3 (0-0.2); EOSINOPHIL # 0.1 TH/MM3 (0-0.4); EOSINOPHIL % 0.9 % (0.0-4.0); HEMO FLAGS DIFF FINAL; LYMPH % 40.6 % (9.0-44.0); LYMPHOCYTE # 3.5 TH/MM3 (1.0-4.8); MEAN CELL VOLUME 88.7 FL (80.0-100.0); MEAN CORPUSCULAR HEMOGLOBIN 29.8 PG (27.0-34.0); MEAN CORPUSCULAR HGB CONC 33.6 % (32.0-36.0); MONO % 9.8 % (0.0-8.0); NEUT % 47.7 % (16.0-70.0); PLATELET COUNT 259 TH/MM3 (150-450); RED BLOOD COUNT 4.96 MIL/MM3 (4.00-5.30); RED CELL DISTRIBUTION WIDTH 13.3 % (11.6-17.2); WHITE BLOOD COUNT 8.5 TH/MM3 (4.0-11.0)
[2017-03-04 18:56] LABS: CHLORIDE 109 MEQ/L (98-107); POTASSIUM 3.6 MEQ/L (3.5-5.1); SODIUM (NA) 141 MEQ/L (136-145)
[2017-03-04 19:00] LABS: ANION GAP 9 MEQ/L (5-15); BICARBONATE 23.3 MEQ/L (21.0-32.0); BLOOD UREA NITROGEN 12 MG/DL (7-18); MAGNESIUM 2.2 MG/DL (1.5-2.5)
[2017-03-04 19:03] LABS: ALT (GPT) 33 U/L (10-53); AST (GOT) 21 U/L (15-37); GLOMERULAR FILTRATION RATE 56 ML/MIN (>89)
[2017-03-04 19:04] LABS: TOTAL BILIRUBIN ADULT 0.2 MG/DL (0.2-1.0)
[2017-03-04 19:06] LABS: ALKALINE PHOSPHATASE 119 U/L (45-117)
--- NOTE | 2017-03-04 19:14 | PD ---
Physical Exam Date Seen by Provider: Mar 04, 2017 Time Seen by Provider: 19:11 Narrative Accepted in transfer of care from Dr. Tsai GENERAL: Well-developed well-nourished female in no acute distress no respiratory distress NECK: Supple, trachea midline. No JVD or lymphadenopathy. CARDIOVASCULAR: Regular rate and rhythm without murmurs, gallops, or rubs. RESPIRATORY: Breath sounds equal bilaterally. No accessory muscle use. GASTROINTESTINAL: Abdomen soft, non-tender, nondistended. No palpable pulsatile mass. MUSCULOSKELETAL: No cyanosis, or edema. Radial and dorsalis pedis pulses 2+ to palpation Data Data Last Documented VS Vital Signs Date Time Temp Pulse Resp B/P (MAP) Pulse Ox O2 Delivery O2 Flow Rate FiO2 03/04/17 19:36 99 14 86/67 (73) 97 Nasal Cannula 2.00 119/64 (82) 03/04/17 18:21 98.4 Orders Orders Electrocardiogram (03/04/17 18:30) B-Type Natriuretic Peptide (03/04/17 18:30) Ckmb (Isoenzyme) Profile (03/04/17 18:30) Complete Blood Count With Diff (03/04/17 18:30) Comprehensive Metabolic Panel (03/04/17 18:30) D-Dimer (03/04/17 18:30) Magnesium (Mg) (03/04/17 18:30) Prothrombin Time / Inr (Pt) (03/04/17 18:30) Act Partial Throm Time (Ptt) (03/04/17 18:30) Troponin I (03/04/17 18:30) Chest, Single Ap (03/04/17 18:30) Ecg Monitoring (03/04/17 18:30) Bilateral Bp Monitoring (03/04/17 18:30) Iv Access Insert/Monitor (03/04/17 18:30) Oximetry (03/04/17 18:30) Oxygen Administration (03/04/17 18:30) Aspirin Chew (Aspirin Chew) (03/04/17 18:30) Sodium Chloride 0.9% Flush (Ns Flush) (03/04/17 18:30) Sodium Chlorid 0.9% 500 Ml Inj (Ns 500 M (03/04/17 18:30) Cta Thor Abd Aorta W Iv C W3d (03/04/17 ) Iohexol 350 Inj (Omnipaque 350 Inj) (03/04/17 20:00) Labs Laboratory Tests Test 03/04/17 18:37 White Blood Count 8.5 TH/MM3 Red Blood Count 4.96 MIL/MM3 Hemoglobin 14.8 GM/DL Hematocrit 44.0 % Mean Corpuscular Volume 88.7 FL Mean Corpuscular Hemoglobin 29.8 PG Mean Corpuscular Hemoglobin Concent 33.6 % Red Cell Distribution Width 13.3 % Platelet Count 259 TH/MM3 Mean Platelet Volume 10.1 FL Neutrophils (%) (Auto) 47.7 % Lymphocytes (%) (Auto) 40.6 % Monocytes (%) (Auto) 9.8 % Eosinophils (%) (Auto) 0.9 % Basophils (%) (Auto) 1.0 % Neutrophils # (Auto) 4.0 TH/MM3 Lymphocytes # (Auto) 3.5 TH/MM3 Monocytes # (Auto) 0.8 TH/MM3 Eosinophils # (Auto) 0.1 TH/MM3 Basophils # (Auto) 0.1 TH/MM3 CBC Comment DIFF FINAL Differential Comment Prothrombin Time 10.5 SEC Prothromb Time International Ratio 1.0 RATIO Activated Partial Thromboplast Time 26.8 SEC D-Dimer Quantitative (PE/DVT) 0.34 MG/L FEU Blood Urea Nitrogen 12 MG/DL Creatinine 1.00 MG/DL Random Glucose 99 MG/DL Total Protein 7.2 GM/DL Albumin 3.4 GM/DL Calcium Level 8.2 MG/DL Magnesium Level 2.2 MG/DL Alkaline Phosphatase 119 U/L Aspartate Amino Transf (AST/SGOT) 21 U/L Alanine Aminotransferase (ALT/SGPT) 33 U/L Total Bilirubin 0.2 MG/DL Sodium Level 141 MEQ/L Potassium Level 3.6 MEQ/L Chloride Level 109 MEQ/L Carbon Dioxide Level 23.3 MEQ/L Anion Gap 9 MEQ/L Estimat Glomerular Filtration Rate 56 ML/MIN Total Creatine Kinase 77 U/L Troponin I 0.06 NG/ML B-Type Natriuretic Peptide 101 PG/ML [facility] Medical Record Reviewed: Yes Supervised Visit with BUSHRA: No Interpretation(s) Last Impressions Chest X-Ray 03/04/17 1830 Signed Impressions: Service Date/Time: Saturday, March 04, 2017 18:44 - CONCLUSION: Normal examination. Artur Booth MD Aorta CTA 03/04/17 0000 Signed Impressions: Service Date/Time: Saturday, March 04, 2017 19:50 - CONCLUSION: Atherosclerotic change throughout the arterial system. There is a severe stenosis narrowing the lumen by 90%% at the proximal left subclavian artery. Artur Booth MD CBC & BMP Diagram 03/04/17 18:37 Total Protein 7.2, Albumin 3.4, Calcium Level 8.2 L, Magnesium Level 2.2, Alkaline Phosphatase 119 H, Aspartate Amino Transf (AST/SGOT) 21, Alanine Aminotransferase (ALT/SGPT) 33, Total Bilirubin 0.2 Vital Signs Date Time Temp Pulse Resp B/P (MAP) Pulse Ox O2 Delivery O2 Flow Rate FiO2 03/04/17 19:36 99 14 86/67 (73) 97 Nasal Cannula 2.00 119/64 (82) 03/04/17 18:47 96 03/04/17 18:47 Nasal Cannula 03/04/17 18:21 98.4 103 16 91/57 (68) 96 Differential Diagnosis Accepted in transfer of care from Dr. Tsai please refer to his dictation Narrative Course Accepted in transfer of care from Dr. Tsai for follow-up of pending labs and diagnostics with anticipation of possible chest pain center admission Patient rates discomfort 0/10 in intensity reports that she feels well at this time is aware that she is waiting on lab results and will have a CT imaging study @ 19:42 labs found to be in normal range except for troponin I of 0.06, mildly elevated with EKG that shows mild ST segment anterolaterally; patient's blood pressure performed right arm 86 systolic left arm 119 systolic currently patient remains asymptomatic and symptom free no pain but does report mid scapular pain at time onset of symptoms was very severe. D-dimer is not elevated will proceed with CTA thoracic and abdominal aorta. Patient is aware plan for admission. @ 9:37 PM patient remains asymptomatic, no pain. Diagnosis Primary Impression: Chest pain Condition: Stable Shaye Stanford MD Mar 04, 2017 19:14
[2017-03-04 19:16] LABS: APTT (PATIENT) 26.8 SEC (24.3-30.1); PROTHROMBIN TIME - PATIENT 10.5 SEC (9.8-11.6)
[2017-03-04 19:17] LABS: CREATINE KINASE 77 U/L (26-192)
--- NOTE | 2017-03-04 19:21 | RADRPT ---
EXAM DATE/TIME: 03/04/2017 18:44 [facility] COMPARISON: CHEST SINGLE AP, November 01, 2016, 22:46. INDICATIONS : Chest pain. MEDICAL HISTORY : Hypercholesterolemia. CAD SURGICAL HISTORY : None. ENCOUNTER: Initial ACUITY: 1 day PAIN SCORE: 7/10 LOCATION: Bilateral chest FINDINGS: A single view of the chest demonstrates the lungs to be symmetrically aerated without evidence of mas s, infiltrate or effusion. The cardiomediastinal contours are unremarkable. Osseous structures are intact. CONCLUSION: Normal examination. Artur Booth MD on March 04, 2017 at 19:20 Board Certified Radiologist. This report was verified electronically.
[2017-03-04] MEDS ORDERED: IOHEXOL 350 MG/ML 10 ML VIAL (for RAD DIAG) IVCONTRAST ONE (20:00)
--- NOTE | 2017-03-04 21:42 | RADRPT ---
EXAM DATE/TIME: 03/04/2017 19:50 [facility] COMPARISON: No previous studies available for comparison. INDICATIONS : Chest pain. Back and arm pain. Shortness of breath. IV CONTRAST: 100 cc Omnipaque 350 (iohexol) IV RADIATION DOSE: 22.94 CTDIvol (mGy) ; Combined studies - Thorax/Abdomen/Pelvis MEDICAL HISTORY : Cardiovascular disease. SURGICAL HISTORY : Cholecystectomy. Tubal ligation. ENCOUNTER: Initial ACUITY: 1 day PAIN SCALE: 5/10 LOCATION: chest TECHNIQUE: Volumetric scanning was performed using a multi-row detector CT scanner. The data was post processed with a variety of visualization algorithms including full volume maximum intensity projection, multi -planar sliding thin slab reformation, curved planar reformation, and surface rendering techniques. Using automated exposure control and adjustment of the mA and/or kV according to patient size, radiat ion dose was kept as low as reasonably achievable to obtain optimal diagnostic quality images. DICOM format image data is available electronically for review and comparison. FINDINGS: LUNGS: There is no consolidation or pneumothorax. No concerning pulmonary nodule is visualized. No pleural fluid is present. MEDIASTINUM: No abnormally enlarged lymph nodes by CT criteria. No axillary or hilar abnormalities are identified. ABDOMEN: The liver and spleen are free of focal defects. The patient is status post cholecystectomy. The pancr eas demonstrate no abnormality. The adrenal glands are normal. The kidneys demonstrate no evidence of solid renal mass or hydronephrosis. No free fluid or abdominal masses are identified. No para-aortic adenopathy is seen. PELVIS: No evidence of free fluid or pelvic mass. No abnormally enlarged inguinal or retroperitoneal lymph no danuta are present. The bladder is unremarkable. THORACIC AORTA: There is /atherosclerotic calcification at the aortic arch and the origins of the great vessels. Ther e is a severe stenosis at the proximal left subclavian artery just beyond its origin. ABDOMINAL AORTA: There is atherosclerotic change throughout the abdominal aorta and the common iliac arteries. A signi ficant stenosis is not seen. The aorta is normal in caliber without aneurysm or dissection. The fabián l arteries are patent bilaterally. The proximal celiac and superior mesenteric arteries are patent a nd normal in diameter. CONCLUSION: Atherosclerotic change throughout the arterial system. There is a severe stenosis narrowing the lumen by 90% at the proximal left subclavian artery. Artur Booth MD on March 04, 2017 at 21:33 Board Certified Radiologist. This report was verified electronically.
[2017-03-04] MEDS: SODIUM CHLOR 0.9% 1000 ML INJ 1,000 ML IV SCH (22:06)
[2017-03-04] MEDS ORDERED: MAGNESIUM HYDROXIDE SUSP 30 ML CUP PO PRN (22:15)
[2017-03-04] MEDS ORDERED: BISACODYL 10 MG SUPP RECTAL PRN (22:15)
[2017-03-04] MEDS ORDERED: SENNOSIDES 8.6 MG TAB PO PRN (22:15)
[2017-03-04] MEDS ORDERED: ONDANSETRON HCL 4 MG/2 ML VIAL IVP PRN (22:15)
[2017-03-04] MEDS ORDERED: MORPHINE SULFATE 4 MG/ML INJ IV PUSH PRN (22:15)
[2017-03-04] MEDS ORDERED: ACETAMINOPHEN 325 MG TAB PO PRN (22:15)
[2017-03-04] MEDS ORDERED: SODIUM CHLORIDE 0.9% FLUSH 10 ML FLUSH IV FLUSH PRN (22:15)
[2017-03-04] MEDS ORDERED: LACTULOSE SYRUP 20 GM/30 ML CUP PO PRN (22:15)
[2017-03-04] MEDS ORDERED: MORPHINE SULFATE 2 MG/ML INJ IV PRN (22:30)
[2017-03-05] VITALS (11 sets, daily range): BP systolic 113–159; BP diastolic 51–81; PULSE 73–88; RESP 16–19; TEMP 96.5–98.9; O2SAT 96–98
[2017-03-05] MEDS ORDERED: HEPARIN-D5W 25,000 U/250 ML 250 ML IV PRN (01:30)
[2017-03-05 08:08] LABS: AUTOMATED NEUTROPHIL # 4.2 TH/MM3 (1.8-7.7); BASOPHIL # 0.1 TH/MM3 (0-0.2); BASOPHIL % 1.1 % (0.0-2.0); EOSINOPHIL # 0.1 TH/MM3 (0-0.4); EOSINOPHIL % 0.7 % (0.0-4.0); HEMATOCRIT 42.5 % (35.0-46.0); HEMO FLAGS DIFF FINAL; LYMPH % 35.3 % (9.0-44.0); LYMPHOCYTE # 2.8 TH/MM3 (1.0-4.8); MEAN CELL VOLUME 89.5 FL (80.0-100.0); MEAN CORPUSCULAR HEMOGLOBIN 29.6 PG (27.0-34.0); MONO % 7.2 % (0.0-8.0); NEUT % 55.7 % (16.0-70.0); PLATELET COUNT 227 TH/MM3 (150-450); RED BLOOD COUNT 4.75 MIL/MM3 (4.00-5.30); RED CELL DISTRIBUTION WIDTH 13.5 % (11.6-17.2); WHITE BLOOD COUNT 7.8 TH/MM3 (4.0-11.0)
--- NOTE | 2017-03-05 08:11 | HHI.HP ---
HPI Service [facility] ([place], [place])ists Primary Care Physician Latasha Merino Admission Diagnosis Chest pain; subclavian aa stenosis Diagnoses: (1) Chest pain Diagnosis: Principal Chief Complaint: Chest pain Travel History International Travel<30 Days: No Contact w/Intl Traveler <30 Da: No Traveled to Known Affected Are: No History of Present Illness Ms. Russo is a pleasant 61-year-old female patient with a known medical history of dyslipidemia who presented to the ED with chest pain. She states that around 1700 [address] [place] the mall she began to feel a steady, tight pain between her bilateral shoulder blades, she states the pain radiated to the back of her neck to her left arm, admits to associated diaphoresis and shortness of breath, denies any associated nausea or vomiting, rates the pain a 6/10 on pain scale. Pain lasted roughly 1 hour total. Activity seemed to make it worse, "time" made the pain better. Denies ever having this type of event or discomfort. Was given Aspirin 162 mg in the ED. D-dimer negative. EKG reviewed showing ST HR 104, ST depression seen in the anterior and lateral leads. Troponin 0.06 ,1.5, awaiting third set. Call placed to Dr. Gonzalez with orders to transfer to [facility] to undergo cardiac catheterization. At the time of assessment patient denies any further chest pain or back pain, all symptoms have resolved, no longer dyspneic. PCP is Dr. Merino. 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 Denies any prior cardiac work up or stress testing. Review of Systems Constitutional: COMPLAINS OF: Chills, DENIES: Fever Eyes: DENIES: Blurred vision Ears, nose, mouth, throat: DENIES: Hearing loss Respiratory: DENIES: Cough, Shortness of breath Cardiovascular: COMPLAINS OF: Chest pain, Palpitations Gastrointestinal: DENIES: Abdominal pain, Constipation, Diarrhea, Nausea, Vomiting Musculoskeletal: DENIES: Joint pain Psychiatric: DENIES: Anxiety Except as stated in HPI: all other systems reviewed are Neg Past Family Social History Past Medical History Dyslipidemia Chronic back and neck pain Osteoarthritis Past Surgical History Cholecystectomy Tubal ligation Reported Medications Active Reported Ibuprofen 800 Mg Tab 800 Mg PO Vitamin B-12 (Cyanocobalamin) 1,000 Mcg Subl Unknown Dose SL DAILY [Statin] Unknown Dose Allergies: Coded Allergies: No Known Allergies (Verified Allergy, Unknown, 03/04/17) Active Ordered Medications Current Medications Medications (Trade) Dose Ordered Sig/Heather Route Start Time Stop Time Status Last Admin Sodium Chloride 1,000 ml @ 100 mls/hr Q10H IV 03/04/17 22:06 (NS Flush) 2 ml UNSCH PRN IV FLUSH 03/04/17 22:15 (NS Flush) 2 ml BID IV FLUSH 03/05/17 09:00 (Zofran Inj) 4 mg Q6H PRN IVP 03/04/17 22:15 (Tylenol) 650 mg Q6H PRN PO 03/04/17 22:15 (Wayland 5-325 Mg) 1 tab Q4H PRN PO 03/04/17 22:15 (Yakelin-Colace) 1 tab BID PO 03/05/17 09:00 (Milk Of Magnesia Liq) 30 ml Q12H PRN PO 03/04/17 22:15 (Senokot) 17.2 mg Q12H PRN PO 03/04/17 22:15 (Dulcolax Supp) 10 mg DAILY PRN RECTAL 03/04/17 22:15 (Lactulose Liq) 30 ml DAILY PRN PO 03/04/17 22:15 (Ecotrin Ec) 81 mg DAILY PO 03/05/17 09:00 (Morphine Inj) 2 mg Q3H PRN IV 03/04/17 22:30 Heparin Sodium/ Dextrose 250 ml @ 10 mls/hr TITRATE PRN IV 03/05/17 01:30 03/05/17 02:02 Family History Maternal medical history significant for COPD, was a smoker. Unaware of father' s medical history. Social History Denies any current tobacco use, does admit to a 44 pack year cigarette smoking history. Denies any alcohol use. Denies any illicit drug use. Physical Exam Vital Signs Vital Signs Date Time Temp Pulse Resp B/P (MAP) Pulse Ox O2 Delivery O2 Flow Rate FiO2 03/05/17 04:00 98.3 85 16 118/58 (78) 98 03/05/17 00:00 98.0 87 16 128/81 (97) 97 03/04/17 23:07 86 03/04/17 22:32 98.4 88 15 109/66 (80) 96 03/04/17 22:15 98.4 88 14 109/66 (80) 96 Room Air 03/04/17 21:00 98.0 87 16 128/81 (97) 97 03/04/17 19:36 99 14 86/67 (73) 97 Nasal Cannula 2.00 119/64 (82) 03/04/17 18:47 96 03/04/17 18:47 Nasal Cannula 03/04/17 18:21 98.4 103 16 91/57 (68) 96 Physical Exam GENERAL: This is a well-nourished, well-developed female patient, sitting up in bed in no apparent distress. SKIN: No rashes, ecchymoses or lesions. Warm and dry. HEENT: Atraumatic. Normocephalic. Pupils equal round and reactive. Extraocular motions intact. No scleral icterus. No injection or drainage. Nose without bleeding. Throat without erythema, tonsillar hypertrophy or exudate. Airway patent. NECK: Trachea midline. No JVD. Supple. CARDIOVASCULAR: Regular rate and rhythm without murmurs, gallops, or rubs. RESPIRATORY: Clear to auscultation. Breath sounds equal bilaterally. No wheezes , rales, or rhonchi. GASTROINTESTINAL: Abdomen soft, non-tender, nondistended. No guarding. MUSCULOSKELETAL: Extremities without clubbing, cyanosis, or edema. No joint tenderness, effusion, or edema noted. NEUROLOGICAL: Awake and alert. Cranial nerves II through XII intact. Motor and sensory grossly within normal limits. Five out of 5 muscle strength in all muscle groups. Normal speech. Laboratory Laboratory Tests Test 03/04/17 18:37 03/05/17 00:12 White Blood Count 8.5 Red Blood Count 4.96 Hemoglobin 14.8 Hematocrit 44.0 Mean Corpuscular Volume 88.7 Mean Corpuscular Hemoglobin 29.8 Mean Corpuscular Hemoglobin Concent 33.6 Red Cell Distribution Width 13.3 Platelet Count 259 Mean Platelet Volume 10.1 Neutrophils (%) (Auto) 47.7 Lymphocytes (%) (Auto) 40.6 Monocytes (%) (Auto) 9.8 Eosinophils (%) (Auto) 0.9 Basophils (%) (Auto) 1.0 Neutrophils # (Auto) 4.0 Lymphocytes # (Auto) 3.5 Monocytes # (Auto) 0.8 Eosinophils # (Auto) 0.1 Basophils # (Auto) 0.1 CBC Comment DIFF FINAL Differential Comment Prothrombin Time 10.5 Prothromb Time International Ratio 1.0 Activated Partial Thromboplast Time 26.8 D-Dimer Quantitative (PE/DVT) 0.34 Blood Urea Nitrogen 12 Creatinine 1.00 Random Glucose 99 Total Protein 7.2 Albumin 3.4 Calcium Level 8.2 Magnesium Level 2.2 Alkaline Phosphatase 119 Aspartate Amino Transf (AST/SGOT) 21 Alanine Aminotransferase (ALT/SGPT) 33 Total Bilirubin 0.2 Sodium Level 141 Potassium Level 3.6 Chloride Level 109 Carbon Dioxide Level 23.3 Anion Gap 9 Estimat Glomerular Filtration Rate 56 Total Creatine Kinase 77 Troponin I 0.06 1.50 B-Type Natriuretic Peptide 101 Result Diagram: 03/04/17183603/04/171836 Imaging Last Impressions Chest X-Ray 03/04/171829 Signed Impressions: Service Date/Time: Saturday, March 04, 2017 18:44 - CONCLUSION: Normal examination. Artur Booth MD Aorta CTA 03/04/17 0000 Signed Impressions: Service Date/Time: Saturday, March 04, 2017 19:50 - CONCLUSION: Atherosclerotic change throughout the arterial system. There is a severe stenosis narrowing the lumen by 90%% at the proximal left subclavian artery. MD Bruce Lowry VTE Risk Assessment Caprini VTE Risk Assessment: Mod/High Risk (score >= 2) Caprini Risk Assessment Model Point Value = 1 Point Value = 2 Point Value = 3 Point Value = 5 Age 41-60 Minor surgery BMI > 25 kg/m2 Swollen legs Varicose veins or History of unexplained or recurrent spontaneous Oral contraceptives or hormone replacement Sepsis (< 1 month) Serious lung disease, including pneumonia (< 1 month) Abnormal pulmonary function Acute myocardial infarction Congestive heart failure (< 1 month) History of inflammatory bowel disease Medical patient at bed rest Age 61-74 Arthroscopic surgery Major open surgery (> 45 min) Laparoscopic surgery (> 45 min) Malignancy Confined to bed (> 72 hours) Immobilizing plaster cast Central venous access Age >= 75 History of VTE Family history of VTE Factor V Leiden Prothrombin [id number] Lupus anticoagulant Anticardiolipin antibodies Elevated serum homocysteine Heparin-induced thrombocytopenia Other congenital or acquired thrombophilia Stroke (< 1 month) Elective arthroplasty Hip, pelvis, or leg fracture Acute spinal cord injury (< 1 month) Prophylaxis Regimen Total Risk Factor Score Risk Level Prophylaxis Regimen 0-1 Low Early ambulation 2 Moderate Order ONE of the following: *Sequential Compression Device (SCD) *Heparin 5000 units SQ BID 3-4 Higher Order ONE of the following medications: *Heparin 5000 units SQ TID *Enoxaparin/Lovenox 40 mg SQ daily (WT < 150 kg, CrCl > 30 mL/min) *Enoxaparin/Lovenox 30 mg SQ daily (WT < 150 kg, CrCl > 10-29 mL/min) *Enoxaparin/Lovenox 30 mg SQ BID (WT < 150 kg, CrCl > 30 mL/min) AND/OR *Sequential Compression Device (SCD) 5 or more Highest Order ONE of the following medications: *Heparin 5000 units SQ TID (Preferred with Epidurals) *Enoxaparin/Lovenox 40 mg SQ daily (WT < 150 kg, CrCl > 30 mL/min) *Enoxaparin/Lovenox 30 mg SQ daily (WT < 150 kg, CrCl > 10-29 mL/min) *Enoxaparin/Lovenox 30 mg SQ BID (WT < 150 kg, CrCl > 30 mL/min) AND *Sequential Compression Device (SCD) Assessment and Plan Problem List: (1) Chest pain ICD Code: R07.9 - Chest pain, unspecified Status: Acute Plan: Serial EKGS and serial troponins ordered for ruling out ACS purposes. Initial troponin 0.06 --> 1.5, awaiting third set. EKG reviewed showing ST with HR [address] depression in anterior and lateral leads. CXR reviewed showing normal examination. Patient started on Heparin gtt, monitor aPPTs. Keep NPO for now. Ensure hydration, NS at 100 ml/hr. Was given aspirin 162 mg PO and Morphine IV in ED. Wayland PO and Morphine IV available PRN as needed per pain scale. Start on Aspirin 325 mg PO daily as well as Metoprolol 25 mg PO BID and Atorvastatin 40 mg PO HS. Call placed to Dr. Gonzalez and updated about EKG, troponins and aortic CTA findings with orders to transfer to the [facility] to undergo a cardiac catheterization. Consult has been placed to vascular surgery, await recommendations. Patient is stable at this time and agreeable to the plan. (2) Hyperlipidemia ICD Code: E78.5 - Hyperlipidemia, unspecified Status: Acute Plan: Continue home statin. Aorta CTA reviewed showing 90% stenosis in left subclavian artery. Awaiting cardiovascular surgery recommendations. Code Status Full code Discussed Condition With Patient Jackie Enciso MARNIE Mar 05, 2017 08:11
[2017-03-05 08:14] LABS: CHLORIDE 113 MEQ/L (98-107); POTASSIUM 3.8 MEQ/L (3.5-5.1); SODIUM (NA) 143 MEQ/L (136-145)
[2017-03-05 08:18] LABS: ANION GAP 8 MEQ/L (5-15); APTT (PATIENT) 44.3 SEC (24.3-30.1); BICARBONATE 22.1 MEQ/L (21.0-32.0); BLOOD UREA NITROGEN 12 MG/DL (7-18)
[2017-03-05 08:21] LABS: ALT (GPT) 27 U/L (10-53); AST (GOT) 23 U/L (15-37); GLOMERULAR FILTRATION RATE 72 ML/MIN (>89)
[2017-03-05 08:22] LABS: TOTAL BILIRUBIN ADULT 0.3 MG/DL (0.2-1.0)
[2017-03-05 08:24] LABS: ALKALINE PHOSPHATASE 104 U/L (45-117)
[2017-03-05] MEDS: SODIUM CHLOR 0.9% 1000 ML INJ 1,000 ML IV SCH ×2 (08:48→18:06)
[2017-03-05] MEDS: SODIUM CHLORIDE 0.9% FLUSH 10 ML FLUSH IV FLUSH SCH ×3 (08:48→20:09)
[2017-03-05] MEDS: DOCUSATE SODIUM 50 MG/SENNA 8.6 MG TAB PO SCH ×2 (09:00→20:08)
[2017-03-05] MEDS ORDERED: ASPIRIN EC 81 MG TABEC PO SCH (09:00)
[2017-03-05] MEDS ORDERED: ASPIRIN 325 MG TAB PO SCH (09:00)
[2017-03-05] MEDS ORDERED: ATORVASTATIN 40 MG TAB PO SCH ×3 (09:00→21:00)
[2017-03-05] MEDS: METOPROLOL TARTRATE 25 MG TAB PO SCH ×2 (09:03→20:08)
--- NOTE | 2017-03-05 09:14 | EKG ---
Date Performed: 03/04/2017 Time Performed: 18:16:01 PTAGE: 61 years EKG: SINUS TACHYCARDIA POSSIBLE LEFT ATRIAL ENLARGEMENT MODERATE ST DEPRESSION ABNORMAL ECG NO PREVIOUS TRACING DOCTOR: Loco Baldwin Interpretating Date/Time 03/05/2017 09:13:32
[2017-03-05 12:20] LABS: HDL CHOLESTEROL 40.8 MG/DL (40.0-60.0)
[2017-03-05] MEDS ORDERED: HEPARIN-NS/PF INJ 1,000 ML ONE (13:51)
[2017-03-05] MEDS ORDERED: MIDAZOLAM HCL 2 MG/2 ML VIAL ONE (13:52)
[2017-03-05] MEDS ORDERED: IOHEXOL 350 MG/ML 100 ML BTL (for Cath Lab) OTHER ONE (13:55)
[2017-03-05] MEDS ORDERED: HEPARIN SODIUM - IV 10,000 UNITS/10 ML VIAL ONE (14:39)
[2017-03-05] MEDS ORDERED: ADENOSINE IV SOLN 3 MG/ML 2 ML VIAL ONE (14:44)
[2017-03-05] MEDS ORDERED: ADENOSINE STRESS TEST INJ 90 MG/30 ML VIAL ONE (14:52)
[2017-03-05] MEDS: TIROFIBAN INFUSION INJ 250 ML IV SCH (15:04)
[2017-03-05] MEDS ORDERED: TIROFIBAN INFUSION INJ 250 ML IV ONE (15:09)
[2017-03-05] MEDS ORDERED: CLOPIDOGREL 300 MG TAB ONE (15:12)
--- NOTE | 2017-03-05 15:22 | CATHPROC ---
invino HIS Report Study Information Study Number Admission Scheduled Start Study Start [id number] Mar 04 2017 10:07PM 03/05/2017 Mar 05 2017 1:41PM [place] Service Cardiac Catheterization Admit Source Facility Department Other [facility] - [employer] Physician and Clinical Staff Initial Trace Ricketts Fire Prevention SpecialistConcepción Lomeli,MARIA Fire Prevention SpecialistTaylor Day RN Other cathlab, cathlab Recorder John Suresh RCIS(BS) Scrub Low Quinones RT(R) Procedures Performed Procedure Location (Site) Vessel Name Coronary Angiograms LCA Left Coronary Coronary Angiograms RCA Right Coronary L Heart Cath LV Gram-hand inj. LV LV Ventricle Stent LAD Mid Left Coronary Wire insertion Fem Art (right) Femoral Art Equipment Time Boarder Machine Description Size Mfg Part Number Used/Scraped [id number] 14:40 ARGON/MAXXIM BAND BAG W/RUBBERBAND * Used *[id number] 14:40 ARGON/MAXXIM BAND BAG W/RUBBERBAND * Used *[id number] TRANSDUCER, TRUWAVE [id number] 13:43 MARTÍNEZ ALAS * Used W/STOCKCOCK *[id number] 538-420 *[id number] [id number] *[id number] [phone] *[id number] [phone] *[id number] 13:43 MEDLINE INDUSTRIES PACK, CCL CUSTOM * Used *[id number] 13:43 MEDLINE PACER PEN, SKIN DUAL W/ RULER * Used *[id number] 15:07 MEDTRONIC STENT, 3.0 9 INTEGRITY 3.0 9 Used *[id number] 15:09 I Am Smart Technology 30 DANILO INDEFLATOR Used *[id number] 14:39 CareDox MEDICAL SHEATH, FR6.5 PRELUDE 11CM FR 6.5 038ACT Used *[id number] 14:39 [employer]Dox MEDICAL SHEATH, FR6.5 PRELUDE 11CM FR 6.5 038ACT Used *[id number] 13:43 [employer]Dox MEDICAL WIRE, 3MMJ .035 180CM 180CM Used *[id number] [id number] 13:43 NAMIC MANIFOLD, 4 PORT * Used *[id number] 13:43 NYCOMED OMNIPAQUE, 350 MG, 150ML 150ML [id number] Used [id number] 13:43 MACKEY MEDICAL BLANKET,WARM AIR CCL * Used *[id number] 13:43 TERUMO MEDICAL SHEATH, FR4 TERUMO (10CM) FR 4 Used *1990650 14:41 VOLCANO PRIME WIRE, VERRATA 185CM 185CM 24110 *[id number] Used Equipment Model, Serial, Lot Number and Expiration Data Description Model Number Serial Number Lot Number Expiration Date STENT, 3.0 9 INTEGRITY [id number] 10-12-2018 History: Current Medications Medication Dosage/Unit Route Frequency Last Date/Time Taken Statins (any) Beta John ASA History: Allergies Allergy Reaction No Known Allergies History: Risk Factors Family History of Hypertension Dyslipidemia Previous RI Previous Heart Failure Premature CAD No Yes No No No Prior Valve Prior PCI Prior CABG Surgery No No No Cerebrovascular Peripheral Artery Chronic Lung On Dialysis Diabetes Disease Disease Disease No No No No No History: Symptoms/Diagnosis Selection Items Chest pain History: Stress Tests Stress or Imaging Studies Performed No History: Other Current Smoker Method Quit Packs a Day Years Used Pack Years No Cigarettes 3 Years Ago 1 44 44 Labs Hgb (g/dl) Hct (%) WBC (l/cumm) Platelets (thousands) 11.60-17.00 35.00-51.00 4.00-11.00 150.00-450.00 14.1 42.5 7.8 227 Glucose (mg/dl) BUN (mg/dl) Creatinine (mg/dl) BUN:Creatinine (1:x) 74.00-106.00 7.00-18.00 0.50-1.30 10.00-20.00 99 12 0.8 15 Na (meq/l) K (meq/l) 136.00-145.00 3.50-5.10 143 3.8 INR (PTT:PT) 0.90-1.10 1 Troponin I (ng/ml) CPK (u/l) CPK-MB (ng/ML) 0.02-0.05 26.00-308.00 0.50-3.60 1.17 77 Not Drawn Medication Medication Total Dose (Bolus/Oral) Medication Total Dosage/Unit 1% XYLOCAINE 20 mL AGGRASTAT BOLUS 43.4 meq/kg HEPARIN 6000 units PLAVIX 600 mg VERSED 1 mg Medications (Bolus/Oral) Medication Time Given Dosage/Unit Administered By Reason VERSED 03/05/2017 2:26:24 PM 1 mg Taylor Burns 1 mg VERSED given in lab by Taylor Burns RN in Left Forearm via Peripheral IV. Ordered by Trace Gonzalez. 1% XYLOCAINE 03/05/2017 2:27:08 PM 20 mL Trace Gonzalez 20 mL 1% XYLOCAINE given in lab by Trace Gonzalez in Right Groin via Subcutaneous. HEPARIN 03/05/2017 2:41:16 PM 6000 units Taylor Burns 6000 units HEPARIN given in lab by Taylor Burns RN in Left Forearm via Peripheral IV. Ordered by Trace Carrington. AGGRASTAT BOLUS 03/05/2017 3:12:14 PM 43.4 meq/kg Taylor Burns 43.4 meq/kg AGGRASTAT BOLUS given in lab by Taylor Burns RN in Left Forearm via Peripheral IV. [place] unt given = 3762.78 meq. Ordered by Trace Gonzalez. PLAVIX 03/05/2017 3:14:20 PM 600 mg Taylor Burns 600 mg PLAVIX given in lab by Taylor Burns RN via Oral. Ordered by Trace Gonzalez. Medication (Drip) Medication Time Given Dosage/Unit Concentration/Unit Diluent (ml) Solution ADENOSINE DRIP 03/05/2017 2:59:35 PM 139.946 mcg/kg/min 90 mg 90 NaCl .9 139.946 mcg/kg/min ADENOSINE DRIP given in lab by Taylor Burns RN in Left Forearm via Peripheral I V. Pump/Drip Flow = 728 ml/hr using NaCl .9 with a concentration of 90 mg in 90 ml. Ordered by Trace Gonzalez. ADENOSINE DRIP 03/05/2017 3:03:48 PM 0 units/hr 0 D5W STOPPED 0 units/hr ADENOSINE DRIP STOPPED given in lab by Taylor Burns RN in Left Forearm via Peripheral I V. Pump/Drip Flow = 0 ml/hr using D5W. Ordered by Trace Gonzalez. AGGRASTAT DRIP 03/05/2017 3:14:02 PM 0.15 mcg/kg/min 12.5 mg 250 NaCl .9 0.15 mcg/kg/min AGGRASTAT DRIP given in lab by Taylor Burns RN in Left Forearm via Peripheral IV. Pump/Drip Flow = 15.61 ml/hr using NaCl .9 with a concentration of 12.5 mg in 250 ml. Ordered by Trace Gonzalez. IV Solutions 03/05/2017 2:00:00 PM 0 mL (IV) 500 NaCl .9 Patient arrived on IV Solutions given by victor hugo gay in Left Forearm via Peripheral IV. Pump/Dri p Flow = 20 ml/hr using NaCl .9. Ordered by Trace Gonzalez. Initial Case Assessment Cardiovascular HR Rhythm NIBP Chest Pain 79 NSR 142/68 0 Edema Present Skin color Skin None Normal Warm Dry Circulatory - Right Pulses Dorsalis Pedis Femoral 2 1 Scale (0,1,2,3,4,d) Circulatory - Left Pulses Dorsalis Pedis Femoral 2 1 Scale (0,1,2,3,4,d) Neurological State Oriented to time-place- Alert Moves all extremities person Respiration - General Respiration Rate SpO2 (%) (B/min) 15 96 Final Case Assessment Cardiovascular HR Rhythm NIBP Chest Pain 80 NSR 155/67 0 Edema Present Skin color Skin None Normal Warm Dry Circulatory - Right Pulses Dorsalis Pedis Femoral 2 1 Scale (0,1,2,3,4,d) Circulatory - Left Pulses Dorsalis Pedis Femoral 2 1 Scale (0,1,2,3,4,d) Neurological State Oriented to time-place- Alert Moves all extremities person Respiration - General Respiration Rate SpO2 (%) (B/min) 15 96 Chronological Log Time Study Chronological Log 13:59:51 Patient arrived via Bed. Heparin drip DCed upon brick picker per MD. 13:59:52 Patient Name, D.O.B, / Armband Verified By R.N. 13:59:52 Pre-op and post- op instructions given; patient acknowledges understanding of instructions. 13:59:53 Verbal Stimulation=2 Physical Stimulation=2 Airway=2 Respiration=2 TOTAL=8. (0=absent, 1=li mited, 2=present) 13:59:54 Presedation assessment performed by [employer] RN. 13:59:54 Immediate Presedation assesment performed by physician. 13:59:55 Patient has been NPO for More than 6Hrs. 13:59:56 Skin Breakdown- none per patient 13:59:58 Patient Warmer Placed on the Table. 13:59:59 Abdias Prominences Protected 14:00:00 A # 20 IV was noted in the Forearm (left). Grade = 0 Patient arrived on IV Solutions given by cathlab, cathlab in Left Forearm via Peripheral IV. Pu mp/Drip Flow = 20 ml/hr 14:00:00 using NaCl .9. Ordered by Trace Gonzalez. 14:00:01 History and physical on the chart or being dictated. Vitals capture started with the following parameters, Patient=Adult, Interval=5 min, Initial Pr wvraej=599 mmHg, 14:04:12 Deflation Rate=5 mmHg, Cuff placed on Left Arm Assessment: Initial Case, HR=79 BPM, Rhythm=NSR, ZXSL=372/68 mmhg, Chest Pain=0, Edema=None, Color=Normal, Skin = Warm, Dry Right Pulses: Kyle Ped=2, Femoral=1 14:04:13 Left Pulses: Kyle Ped=2, Femoral=1 Neurological: State=Alert, Ox3, CASTELLON Respiration: Resp=15 B/min, SpO2=96 % 14:04:33 Reference ECG taken 14:05:25 TR=114 bpm, UBBK=563/68 mmhg, SpO2=96.0 %, Resp=15 B/min, Pain=0, Jackelin=10, Valenzuela=2 14:08:11 Bilateral groins prepped with 2% chlorhexidine, and draped after a 3 minute waiting time. 14:09:51 HR=82 bpm, LYDW=675/80 mmhg, SpO2=96.0 %, Resp=15 B/min, Pain=0, Jackelin=10, Valenzuela=2 14:12:20 MD paged 14:14:28 Pressure channel 1 zeroed. 14:14:54 HR=84 bpm, HNFX=703/65 mmhg, SpO2=95.0 %, Resp=17 B/min, Pain=0, Jackelin=10, Valenzuela=2 14:18:44 MD responded 14:19:55 HR=81 bpm, ICRV=401/65 mmhg, SpO2=95.0 %, Resp=16 B/min, Pain=0, Jackelin=10, Valenzuela=2 14:21:09 MD arrived. 14:21:15 Contrast Scanned 14:21:15 Immediate Presedation assesment performed by physician. 14:24:52 HR=85 bpm, SNSP=438/81 mmhg, SpO2=97.0 %, Resp=16 B/min, Pain=0, Jackelin=10, Valenzuela=2 Time Out. Correct patient, correct procedure, correct physician, power injector not loaded with contrast with surgical 14:25:57 team present. Time Out Concurred by MD and individual staff in procedure. 14:26:18 Case Start 14::19 Verbal Stimulation=2 Physical Stimulation=2 Airway=2 Respiration=2 TOTAL=8. (0=absent, 1=li mited, 2=present) 14::24 1 mg VERSED given in lab by Taylor Burns, MARIA in Left Forearm via Peripheral IV. Ordered b y Trace Gonzalez. 14:27:08 20 mL 1% XYLOCAINE given in lab by Trace Gonzalez in Right Groin via Subcutaneous. 14:28:54 Access site was Right Femoral Artery. 14:28:58 A SHEATH, FR4 TERUMO (10CM) FR 4 was advanced into the Fem Art (right) using the Percutaneo us technique. 14:29:28 Activated Clotting Time Drawn A JR 4.0 INFINITI CATHETER FR 4 was advanced over a wire. OMNIPAQUE, 350 MG, 150ML 150ML was us ed for ::31 injections. 14:29:55 HR=79 bpm, FBAR=420/69 mmhg, SpO2=96.0 %, Resp=12 B/min, Pain=0, Jackelin=10, Valenzuela=2 Recorded Pressure: LV, HR=78, Condition=Condition 1 14:30:49 (Left Ventricle) LV 171/8/21 14:30:54 The LV was manually injected with 10 cc's and visualized. OMNIPAQUE, 350 MG, 150ML 150ML us ed. Recorded Pressure: LV, Ao, HR=81, Condition=Condition 1 14:30:58 (Left Ventricle) LV 159/13/21, (Aorta) Ao 163/83/118 14:31:19 The RCA was injected and visualized at various angles. OMNIPAQUE, 350 MG, 150ML 150ML used . 14:31:26 Catheter was removed A JL 4.0 INFINITI CATHETER FR 4 was advanced over a wire. OMNIPAQUE, 350 MG, 150ML 150ML was us ed for 14:31:27 injections. 14:32:26 The LCA was injected and visualized at various angles. OMNIPAQUE, 350 MG, 150ML 150ML used . 14:33:26 ACT (Normal Range 90-180) = 138 Recorded Pressure: Ao, HR=86, Condition=Condition 1 14:33:54 (Aorta) Ao 169/87/123 14:34:49 Catheter was removed 14:35:33 HR=86 bpm, SQRV=805/75 mmhg, SpO2=93.0 %, Resp=16 B/min, Pain=0, Jackelin=10, Valenzuela=2 14:35:52 Verbal Stimulation=2 Physical Stimulation=2 Airway=2 Respiration=2 TOTAL=8. (0=absent, 1=li mited, 2=present) 14:38:43 Cine recording checked. 14:40:02 HR=81 bpm, YALY=518/62 mmhg, SpO2=95 %, Resp=19 B/min, Pain=0, Jackelin=10, Valenzuela=2 Setting up for IFR 14:40:58 6000 units HEPARIN given in lab by Taylor Burns, MARIA in Left Forearm via Peripheral IV. Ordere d by Carlos, 14:41:16 Trace. 14:44:59 HR=82 bpm, QHLM=753/70 mmhg, SpO2=94.0 %, Resp=16 B/min, Pain=0, Jackelin=10, Valenzuela=2 A SHEATH, FR6.5 PRELUDE 11CM FR 6.5 was exchanged in the Fem Art (right). This was necessary in order to 14:46:29 accomodate a larger catheter. 14:47:12 Activated Clotting Time Drawn A XB 3.5 GUIDE CATHETER FR 6 was advanced over a wire. OMNIPAQUE, 350 MG, 150ML 150ML was used for 14:47:20 injections. 14:50:23 A PRIME WIRE, VERRATA 185CM 185CM was inserted via Fem Art (right). 14:50:26 HR=80 bpm, BCJJ=627/81 mmhg, SpO2=96.0 %, Resp=17 B/min, Pain=0, Jackelin=10, Valenzuela=2 14:52:00 Wire removed After removing the current catheter a XB 3.0 GUIDE CATHETER FR 6 was advanced over a WIRE, 3MMJ .035 180CM 14:52:05 180CM. 14:54:45 ACT (Normal Range 90-180) = 277 14:54:59 HR=81 bpm, LHHY=141/70 mmhg, SpO2=95.0 %, Resp=19 B/min, Pain=0, Jackelin=10, Valenzuela=2 14:56:05 Interventional wire has crossed the lesion 14:56:09 Flow Wire was was placed in the LAD Mid. The FFR measures ~FFR~ percent. The IFR measures 9 2 Percent. 139.946 mcg/kg/min ADENOSINE DRIP given in lab by Taylor Burns RN in Left Forearm via Periph eral IV. 14:59:35 Pump/Drip Flow = 728 ml/hr using NaCl .9 with a concentration of 90 mg in 90 ml. Ordered by Trace Salmeron. 14:59:58 HR=80 bpm, NEYK=344/79 mmhg, SpO2=98.0 %, Resp=16 B/min, Pain=0, Jackelin=10, Valenzuela=2 15:01:11 Flow Wire was was placed in the LAD Mid. The FFR measures 84 percent. The IFR measures ~IFR ~ Percent. 0 units/hr ADENOSINE DRIP STOPPED given in lab by Taylor Burns RN in Left Forearm via Periph eral IV. Pump/Drip 15:03:48 Flow = 0 ml/hr using D5W. Ordered by Trace Gonzalez. 15:04:01 Wire removed from DIAGNOL, repositioned down LAD 15:04:56 Flow Wire was was placed in the LAD Mid. The FFR measures ~FFR~ percent. The IFR measures 8 9 Percent. 15:05:03 HR=88 bpm, NWSA=476/59 mmhg, SpO2=96.0 %, Resp=11 B/min, Pain=0, Jackelin=10, Valenzuela=2 An STENT, 3.0 9 INTEGRITY 3.0 9 Bare Metal Stent was inserted through a XB 3.0 GUIDE CATHETER F R 6 over a 15:07:07 PRIME WIRE, VERRATA 185CM 185CM. A STENT, 3.0 9 INTEGRITY 3.0 9 was deployed using a 30 DANILO INDEFLATOR at 10 atmospheres for 12 seconds in the 15:08:46 LAD Mid. 15:09:40 Delivery device removed 15:09:44 Wire removed 15:09:45 Catheter was removed 15:09:53 Case End Assessment: Final Case, HR=80 BPM, Rhythm=NSR, OSLL=255/67 mmhg, Chest Pain=0, Edema=None, [place] r=Normal, Skin = Warm, Dry Right Pulses: Kyle Ped=2, Femoral=1 15:09:59 Left Pulses: Kyle Ped=2, Femoral=1 Neurological: State=Alert, Ox3, CASTELLON Respiration: Resp=15 B/min, SpO2=96 % 15:10:00 HR=81 bpm, TKKK=578/67 mmhg, SpO2=96.0 %, Resp=18 B/min, Pain=0, Jackelin=10, Valenzuela=2 15:10:10 In the Fem Art (right) the SHEATH, FR6.5 PRELUDE 11CM FR 6.[address] by Trace Garcai. 15:10:45 Sterile dressing applied to site 15:10:46 No case complications noted. 15:10:47 Cine recording checked. 15:10:48 Bedside Report will be given. 15:10:49 Implantable Device card placed in patient's chart. 15:10:50 Contrast Scanned 15:10:52 Verbal Stimulation=2 Physical Stimulation=2 Airway=2 Respiration=2 TOTAL=8. (0=absent, 1=l imited, 2=present) 15:10:59 A Left Heart Cath was performed. 43.4 meq/kg AGGRASTAT BOLUS given in lab by Taylor Burns RN in Left Forearm via Peripheral IV. Amount given = 15:12:14 3762.78 meq. Ordered by Trace Gonzalez. 0.15 mcg/kg/min AGGRASTAT DRIP given in lab by Taylor Burns RN in Left Forearm via Peripher al IV. Pump/Drip 15:14:02 Flow = 15.61 ml/hr using NaCl .9 with a concentration of 12.5 mg in 250 ml. Ordered by Trace Cohen. 15:14:20 600 mg PLAVIX given in lab by Taylor Burns, MARIA via Oral. Ordered by Trace Gonzalez. 15:15:36 HR=78 bpm, MHQW=242/70 mmhg, SpO2=96.0 %, Resp=15 B/min 15:19:48 Vitals capture stopped. 15:19:50 Patient moved to stretcher End Study - Contrast Media Used In Study Contrast Total Opened (mL) Total Used (mL) Total Wasted (mL) Omnipaque 100 100 0 End Study - Maximum Contrast Load Max Contrast Load (mL) 541.8 End Study - Radiation Exposure Fluoro Time (minutes) 5.6 End Study - Patient Disposition Complications Transferred To Interventional Outcome No Telemetry Bed No attempt made
--- NOTE | 2017-03-05 15:39 | PD.CAR.PN ---
CVT Progress Note Subjective/Hospital Course: 61 year-old with left subclavian stenosis and NSTEMI I was consulted this am to see the patient at [place], but once I got there i was told that the patient had transferred to [facility] about an hour earlier. 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 Will try to catch up later and complete the consult Thanks Jae 03/05/17 8 PM I finally caught up with the patient patient is now in CV stepdown unit She is awake alert and oriented Full consult is dictated Thanks Jae Objective: Vital Signs Date Time Temp Pulse Resp B/P (MAP) Pulse Ox O2 Delivery O2 Flow Rate FiO2 03/05/17 12:00 98.2 76 19 130/58 (82) 96 03/05/17 08:00 96.5 73 18 138/64 (88) 96 03/05/17 08:00 88 03/05/17 04:00 98.3 85 16 118/58 (78) 98 03/05/17 00:00 98.0 87 16 128/81 (97) 97 03/04/17 23:07 86 03/04/17 22:32 98.4 88 15 109/66 (80) 96 03/04/17 22:15 98.4 88 14 109/66 (80) 96 Room Air 03/04/17 21:00 98.0 87 16 128/81 (97) 97 03/04/17 19:36 99 14 86/67 (73) 97 Nasal Cannula 2.00 119/64 (82) 03/04/17 18:47 96 03/04/17 18:47 Nasal Cannula 03/04/17 18:21 98.4 103 16 91/57 (68) 96 Labs: Laboratory Tests Test 03/05/17 07:50 White Blood Count 7.8 TH/MM3 (4.0-11.0) Red Blood Count 4.75 MIL/MM3 (4.00-5.30) Hemoglobin 14.1 GM/DL (11.6-15.3) Hematocrit 42.5 % (35.0-46.0) Mean Corpuscular Volume 89.5 FL (80.0-100.0) Mean Corpuscular Hemoglobin 29.6 PG (27.0-34.0) Mean Corpuscular Hemoglobin Concent 33.0 % (32.0-36.0) Red Cell Distribution Width 13.5 % (11.6-17.2) Platelet Count 227 TH/MM3 (150-450) Mean Platelet Volume 10.0 FL (7.0-11.0) Neutrophils (%) (Auto) 55.7 % (16.0-70.0) Lymphocytes (%) (Auto) 35.3 % (9.0-44.0) Monocytes (%) (Auto) 7.2 % (0.0-8.0) Eosinophils (%) (Auto) 0.7 % (0.0-4.0) Basophils (%) (Auto) 1.1 % (0.0-2.0) Neutrophils # (Auto) 4.2 TH/MM3 (1.8-7.7) Lymphocytes # (Auto) 2.8 TH/MM3 (1.0-4.8) Monocytes # (Auto) 0.6 TH/MM3 (0-0.9) Eosinophils # (Auto) 0.1 TH/MM3 (0-0.4) Basophils # (Auto) 0.1 TH/MM3 (0-0.2) CBC Comment DIFF FINAL Differential Comment Activated Partial Thromboplast Time 44.3 SEC (24.3-30.1) Blood Urea Nitrogen 12 MG/DL (7-18) Creatinine 0.80 MG/DL (0.50-1.00) Random Glucose 99 MG/DL (74-106) Total Protein 6.5 GM/DL (6.4-8.2) Albumin 3.1 GM/DL (3.4-5.0) Calcium Level 8.3 MG/DL (8.5-10.1) Alkaline Phosphatase 104 U/L (45-117) Aspartate Amino Transf (AST/SGOT) 23 U/L (15-37) Alanine Aminotransferase (ALT/SGPT) 27 U/L (10-53) Total Bilirubin 0.3 MG/DL (0.2-1.0) Sodium Level 143 MEQ/L (136-145) Potassium Level 3.8 MEQ/L (3.5-5.1) Chloride Level 113 MEQ/L (98-107) Carbon Dioxide Level 22.1 MEQ/L (21.0-32.0) Anion Gap 8 MEQ/L (5-15) Estimat Glomerular Filtration Rate 72 ML/MIN (>89) Troponin I 1.17 NG/ML (0.02-0.05) Triglycerides Level 184 MG/DL (42-150) Cholesterol Level 185 MG/DL (120-200) LDL Cholesterol 107 MG/DL (0-99) HDL Cholesterol 40.8 MG/DL (40.0-60.0) Cholesterol/HDL Ratio 4.53 RATIO Result Diagram: 03/05/17 0750 03/05/17 0750 Penelope Reynoso MD Mar 05, 2017 15:39
[2017-03-05] MEDS ORDERED: MISC INFORMATION XX ONE (18:45)
[2017-03-05] MEDS ORDERED: BACITRACIN OINT 0.9 GM PKT TOP ONE (18:45)
[2017-03-05] MEDS ORDERED: CLOPIDOGREL 300 MG TAB PO ONE (18:45)
[2017-03-05] MEDS ORDERED: SODIUM CHLORIDE 0.9% FLUSH 10 ML FLUSH IV FLUSH PRN (18:45)
--- NOTE | 2017-03-05 18:51 | RADRPT ---
EXAM DATE/TIME: 03/05/2017 17:08 [place] COMPARISON: No previous studies available for comparison. INDICATIONS : Stenosis. MEDICAL HISTORY : Gastroesophageal reflux disease. Hypercholesterolemia. Right caortid artery blockage. Hyperlipidemi a. Hyperlipidemia. SURGICAL HISTORY : Cholecystectomy. Tubal ligation. ENCOUNTER: Initial ACUITY: 1 day PAIN SCORE: 0/10 LOCATION: Bilateral neck PEAK SYSTOLIC VELOCITIES (cm/sec): ICA/CCA RATIO: Right: 1.2 Left: 1.7 ICA: Right: 101.2 Left: 115.6 CCA: Right: 83.3 Left: 66.8 ECA: Right: 150.9 Left: 95.3 VERTEBRAL: Right: 73.7 antegrade Left: 86.6 retrograde Elevated flow velocities and ICA/CCA ratios have been found to correlate with increased degrees of vessel stenosis, calculated as percentage of diameter relative to a normal segment of distal ICA/CCA FINDINGS: RIGHT CAROTID: Moderate plaque seen at the bulb and proximal internal carotid artery. LEFT CAROTID: Moderate plaque seen within the bulb and proximal internal carotid artery. VERTEBRAL ARTERIES: There is retrograde flow in the left vertebral artery. MISCELLANEOUS: None. CONCLUSION: 1. Moderate atherosclerotic disease of both carotid bifurcations but without evidence of hemodynamica lly significant narrowing. 2. Apparent left subclavian stenosis with steal phenomenon. Artur Spann MD on March 05, 2017 at 18:48 Board Certified Radiologist. This report was verified electronically.
--- NOTE | 2017-03-05 19:15 | MB ---
cc: LIGIA AG M.D. DATE OF CONSULTATION 03/05/17 HISTORY OF PRESENT ILLNESS Taylor is a very pleasant 61-year lady with history of carotid stenosis, remote tobacco use who has been experiencing vague episodes of chest pain and near syncope for the past several weeks. Her chest pain got much worse last night associated with shortness of breath and lightheadedness. The patient was also noted to be pale appearing after doing some shopping at the mall. The pain also radiated bilaterally into the scapular area. She otherwise denies any fevers, chills, cough, GI or bleeding, paroxysmal nocturnal dyspnea, orthopnea, syncope or dizziness. PAST MEDICAL HISTORY As per history of present illness. 1. History of incontinence 2. Right carotid stenosis, 3. Osteoporosis, 4. Migraine headaches 5. Dyslipidemia 6. Cholecystectomy. SOCIAL HISTORY Quit smoking in 2013. Denies alcohol use. ALLERGIES None. MEDICATIONS Prior to admission, 1. Ibuprofen 800 daily. 2. Vitamin B12. In hospital, 3. Aspirin 325. 4. Heparin drip. 5. Metoprolol 25 q.12 h. 6. Atorvastatin 40 daily. PHYSICAL EXAMINATION VITAL SIGNS: Blood pressure 119/58, pulse 85, respiratory rate 16, temperature 98.3. GENERAL: She is alert and oriented times three in no distress NECK: Supple. No JVD or bruit CARDIOVASCULAR: S1, S2. No murmurs, rubs or gallops. LUNGS: Clear to auscultation bilaterally ABDOMEN: Soft, nontender, nondistended, positive bowel sounds. EXTREMITIES: No lower extremity edema. LABORATORY DATA White count 7.8, hemoglobin 14.1, hematocrit 42.5, platelet count 227. Sodium 143, potassium 3.8, chloride 113, bicarb 22.1, BUN 12 creatinine 0.80. LFTs normal. Initial troponin 0.06 seconds, troponin 1.50, ____ 1.17. BNP is 101, albumin 31, total cholesterol 185, LDL 107, HDL 40.8, INR 1.0. IMAGING STUDIES CTA of the chest shows severe stenosis of 90% of the proximal left subclavian artery. Chest x-ray - normal examination. CARDIOLOGY STUDIES EKG shows sinus tachycardia at 104 beats per minute. There is [address]-segment depression in 2, 3 and AVF, V3, V4, V5, V6. DIAGNOSES 1. Non STEMI 2. Congestive heart failure, 3. Subclavian stenosis. 4. Peripheral vascular disease. 5. Carotid stenosis. 6. Decompensated congestive heart failure. DISCUSSION At this point in time, the patient has a non STEMI. She has borderline ischemic changes in the anterior and inferior leads suggesting LAD disease and/or PDA disease. She has multiple cardiac risk factors. I do think left heart catheterization is urgently indicated. I agree with aspirin, atorvastatin 40 at bedtime, heparin drip and Lopressor [address] Reynoso has been consulted for her subclavian stenosis. MD JENI Mak/ /6:48 PM /7:00 PM
[2017-03-05] MEDS: ACETAMINOPHEN/HYDROcodone 325 MG/5 MG TAB PO PRN (20:08)
[2017-03-05] MEDS: CARVEDILOL 3.125 MG TAB PO SCH (20:08)
[2017-03-05] MEDS ORDERED: ATROPINE SULFATE 1 MG/10 ML SYRINGE ONE (20:36)
--- NOTE | 2017-03-05 20:41 | MB ---
cc: MD AYSHA,[facility] DATE OF CONSULTATION: 03/05/2017. REASON FOR CONSULTATION: Left subclavian stenosis of bilateral carotid stenosis, non-S-T myocardial infarction. HISTORY OF PRESENT ILLNESS: This very pleasant 61-year-old female [place] the mall when she started having some back pain and neck pain radiating between her shoulder blades and shortness of breath and diaphoresis. The patient was a transferred to [facility] and underwent some workup there and was diagnosed with a non-S-T myocardial infarction and then transferred to our institution for further care, in this case, catheterization. I was consulted this morning to see the patient at [facility] for left subclavian stenosis diagnosed on aortogram, which was, I guess, done because of the suspicion of dissection, but by the time I went to [facility], the patient was already transferred here to the engineering laboratory technician for cardiac catheterization by Dr. Gonzalez, so I am seeing the patient at this point. PAST MEDICAL HISTORY: The past medical history is that of: 1. Bilateral carotid stenosis. 2. Urinary incontinence. 3. Hyperlipidemia. 4. Cholelithiasis. PAST SURGICAL HISTORY: Cholecystectomy. SOCIAL HISTORY: The patient does not drink. Stopped smoking in 2013 and smoked all of her adult life. MEDICATIONS AT HOME: She did not take any medications at home except vitamins. MEDICATIONS NOW: Now she is on a number of things. PHYSICAL EXAMINATION: GENERAL: The physical examination reveals a pleasant 61-year-old lady awake, alert, oriented. HEAD, EYES, EARS, NOSE, THROAT: Normocephalic. No trauma to the head. Pupils equal and reactive. Extraocular muscles intact. NECK: Bilateral carotid pulses and actually bilateral carotid bruits about 3/6. No masses. No thyromegaly. CHEST: Bilateral breath sounds. HEART: Regular rhythm. The patient is now hemodynamically stable. ABDOMEN: Soft. Active bowel sounds. EXTREMITIES: Grossly within normal limits. The patient has palpable brachial, ulnar and radial pulses bilaterally, which would be slightly inconsistent with a tight subclavian stenosis, but then again, patients with fairly tight asymptomatic stenosis may have the palpable pulses. In the lower extremities, the patient has femoral, popliteal, dorsalis pedis and posterior tibial pulses. NEUROLOGIC: The patient is fully intact. Marisol coma scale is 15. Motorically she is fully intact. Sensory intact. No abnormal reflexes and normal deep tendon reflexes. RECOMMENDATIONS: This jet lady came for different reasons, but obviously had a non-S-T elevation myocardial infarction, and considering that, this takes the priority. She underwent catheterization with stent placement by Dr. Gonzalez today. Once the patient is in the hospital, she will undergo ultrasound of the carotids and will evaluate the subclavian stenosis. As far as subclavian stenosis is concerned, it is asymptomatic and probably should not be addressed with any surgery. Occasionally we will do a dilatation of the subclavian artery depending on location and such. As far as the carotid disease is concerned, ultrasound will be performed and I really have a suspicion this patient actually might have a carotid stenosis so even if ultrasound is questionable, will do a CTA of the carotids on this lady. Obviously, any surgery would be postponed until the patient is adequately prepared from the cardiac point. I will continue to follow the patient. CRITICAL CARE TIME: Thirty-eight (38) minutes. Penelope MCKINNON/ANDER /8:23 PM /8:33 PM
[2017-03-05] MEDS ORDERED: ATORVASTATIN 10 MG TAB PO SCH (21:00)
[2017-03-06] VITALS (21 sets, daily range): BP systolic 97–148; BP diastolic 52–67; PULSE 68–98; RESP 16; TEMP 98.1–98.5; O2SAT 96–98
[2017-03-06] MEDS: SODIUM CHLOR 0.9% 1000 ML INJ 1,000 ML IV SCH ×2 (01:20→14:06)
[2017-03-06] MEDS: TIROFIBAN INFUSION INJ 250 ML IV SCH (04:37)
[2017-03-06] MEDS: ACETAMINOPHEN/HYDROcodone 325 MG/5 MG TAB PO PRN (04:58)
[2017-03-06 06:25] LABS: AUTOMATED NEUTROPHIL # 6.5 TH/MM3 (1.8-7.7); BASOPHIL % 0.4 % (0.0-2.0); EOSINOPHIL % 0.4 % (0.0-4.0); HEMATOCRIT 39.3 % (35.0-46.0); HEMO FLAGS DIFF FINAL; LYMPH % 25.3 % (9.0-44.0); LYMPHOCYTE # 2.5 TH/MM3 (1.0-4.8); MEAN CELL VOLUME 91.4 FL (80.0-100.0); MEAN CORPUSCULAR HEMOGLOBIN 30.4 PG (27.0-34.0); MEAN CORPUSCULAR HGB CONC 33.2 % (32.0-36.0); MONO % 8.7 % (0.0-8.0); NEUT % 65.2 % (16.0-70.0); PLATELET COUNT 215 TH/MM3 (150-450); RED BLOOD COUNT 4.29 MIL/MM3 (4.00-5.30); RED CELL DISTRIBUTION WIDTH 14.1 % (11.6-17.2)
[2017-03-06 06:42] LABS: BICARBONATE 23.4 MEQ/L (21.0-32.0); POTASSIUM 3.9 MEQ/L (3.5-5.1)
[2017-03-06 06:47] LABS: HDL CHOLESTEROL 34.2 MG/DL (40.0-60.0)
[2017-03-06] MEDS ORDERED: RAMIPRIL 2.5 MG CAP PO SCH (09:00)
[2017-03-06] MEDS ORDERED: CLOPIDOGREL 75 MG TAB PO SCH (09:00)
[2017-03-06] MEDS ORDERED: ASPIRIN 81 MG CHEW TAB PO SCH (09:00)
[2017-03-06] MEDS: SODIUM CHLORIDE 0.9% FLUSH 10 ML FLUSH IV FLUSH SCH ×2 (09:00)
[2017-03-06] MEDS: METOPROLOL TARTRATE 25 MG TAB PO SCH (09:33)
[2017-03-06] MEDS: CARVEDILOL 3.125 MG TAB PO SCH (09:33)
[2017-03-06] MEDS: DOCUSATE SODIUM 50 MG/SENNA 8.6 MG TAB PO SCH (09:36)
--- NOTE | 2017-03-06 10:14 | PD.CARD.PN ---
Subjective Subjective Remarks denies chest pain, states feels alot better Objective Medications Current Medications Medications (Trade) Dose Ordered Sig/Heather Route Start Time Stop Time Status Last Admin Sodium Chloride 1,000 ml @ 100 mls/hr Q10H IV 03/04/17 22:06 03/06/17 01:20 (NS Flush) 2 ml UNSCH PRN IV FLUSH 03/04/17 22:15 (NS Flush) 2 ml BID IV FLUSH 03/05/17 09:00 (Zofran Inj) 4 mg Q6H PRN IVP 03/04/17 22:15 (Tylenol) 650 mg Q6H PRN PO 03/04/17 22:15 (Bosler 5-325 Mg) 1 tab Q4H PRN PO 03/04/17 22:15 03/06/17 04:58 (Yakelin-Colace) 1 tab BID PO 03/05/17 09:00 03/06/17 09:36 (Milk Of Magnesia Liq) 30 ml Q12H PRN PO 03/04/17 22:15 (Senokot) 17.2 mg Q12H PRN PO 03/04/17 22:15 (Dulcolax Supp) 10 mg DAILY PRN RECTAL 03/04/17 22:15 (Lactulose Liq) 30 ml DAILY PRN PO 03/04/17 22:15 (Morphine Inj) 2 mg Q3H PRN IV 03/04/17 22:30 (Lopressor) 25 mg Q12HR PO 03/05/17 09:00 03/06/17 09:33 (NS Flush) 2 ml UNSCH PRN IV FLUSH 03/05/17 18:45 (NS Flush) 2 ml BID IV FLUSH 03/05/17 21:00 03/06/17 09:00 (Aspirin Chew) 162 mg DAILY PO 03/06/17 09:00 03/06/17 09:34 (Plavix) 75 mg DAILY PO 03/06/17 09:00 03/06/17 09:33 Tirofiban/Sodium Chloride 250 ml @ 15.606 mls/ hr Q16H2M IV 03/05/17 18:38 03/06/17 12:37 03/06/17 04:37 (Coreg) 3.125 mg BID PO 03/05/17 21:00 03/06/17 09:33 (Altace) 2.5 mg DAILY PO 03/06/17 09:00 03/06/17 09:34 (Lipitor) 40 mg HS PO 03/05/17 21:00 Vital Signs / I&O Vital Signs Date Time Temp Pulse Resp B/P (MAP) Pulse Ox O2 Delivery O2 Flow Rate FiO2 03/06/17 06:00 86 03/06/17 05:00 82 03/06/17 04:00 78 03/06/17 03:00 77 03/06/17 03:00 98.1 79 16 103/52 (69) 96 03/06/17 02:00 72 03/06/17 01:00 70 03/06/17 00:00 68 03/05/17 23:00 98.9 88 16 113/51 (71) 96 Arterial Line 03/05/17 23:00 77 03/05/17 22:00 78 03/05/17 21:00 86 03/05/17 20:00 86 03/05/17 19:30 97.9 85 16 159/74 (102) 96 140/62 (88) 03/05/17 19:00 84 03/05/17 16:41 98.3 73 18 146/77 (100) 96 03/05/17 12:00 98.2 76 19 130/58 (82) 96 I/O 03/05/17 03/05/17 03/05/17 03/06/17 03/06/17 03/06/17 07:00 15:00 23:00 07:00 15:00 23:00 Intake Total 38 ml 250 ml 1746 ml Output Total 400 ml 900 ml Balance 38 ml -150 ml 846 ml Intake Oral 250 ml 480 ml IV Total 38 ml 1266 ml Output Urine Total 400 ml 900 ml # Voids 1 1 # Bowel Movements 0 Laboratory GENERAL: SKIN: Warm and dry. HEAD: Normocephalic. EYES: No scleral icterus. No injection or drainage. NECK: Supple, trachea midline. No JVD or lymphadenopathy. CARDIOVASCULAR: Regular rate and rhythm without murmurs, gallops, or rubs. RESPIRATORY: Breath sounds equal bilaterally. No accessory muscle use. GASTROINTESTINAL: Abdomen soft, non-tender, nondistended. MUSCULOSKELETAL: No cyanosis, or edema. BACK: Nontender without obvious deformity. No CVA tenderness. Laboratory Tests Test 03/06/17 05:41 White Blood Count 10.0 TH/MM3 Red Blood Count 4.29 MIL/MM3 Hemoglobin 13.0 GM/DL Hematocrit 39.3 % Mean Corpuscular Volume 91.4 FL Mean Corpuscular Hemoglobin 30.4 PG Mean Corpuscular Hemoglobin Concent 33.2 % Red Cell Distribution Width 14.1 % Platelet Count 215 TH/MM3 Mean Platelet Volume 9.8 FL Neutrophils (%) (Auto) 65.2 % Lymphocytes (%) (Auto) 25.3 % Monocytes (%) (Auto) 8.7 % Eosinophils (%) (Auto) 0.4 % Basophils (%) (Auto) 0.4 % Neutrophils # (Auto) 6.5 TH/MM3 Lymphocytes # (Auto) 2.5 TH/MM3 Monocytes # (Auto) 0.9 TH/MM3 Eosinophils # (Auto) 0.0 TH/MM3 Basophils # (Auto) 0.0 TH/MM3 CBC Comment DIFF FINAL Differential Comment Blood Urea Nitrogen 11 MG/DL Creatinine 0.76 MG/DL Random Glucose 96 MG/DL Calcium Level 8.0 MG/DL Sodium Level 141 MEQ/L Potassium Level 3.9 MEQ/L Chloride Level 112 MEQ/L Carbon Dioxide Level 23.4 MEQ/L Anion Gap 6 MEQ/L Estimat Glomerular Filtration Rate 77 ML/MIN Total Creatine Kinase 63 U/L Triglycerides Level 173 MG/DL Cholesterol Level 151 MG/DL LDL Cholesterol 82 MG/DL HDL Cholesterol 34.2 MG/DL Cholesterol/HDL Ratio 4.41 RATIO Assessment and Plan Problem List: (1) CAD (coronary artery disease) ICD Codes: I25.10 - Atherosclerotic heart disease of [place] coronary artery without angina pectoris (2) NSTEMI (non-ST elevated myocardial infarction) ICD Codes: I21.4 - Non-ST elevation (NSTEMI) myocardial infarction (3) PVD (peripheral vascular disease) ICD Codes: I73.9 - Peripheral vascular disease, unspecified (4) Syncope ICD Codes: R55 - Syncope and collapse (5) Subclavian artery stenosis, left ICD Codes: I77.1 - Stricture of artery (6) Hyperlipidemia ICD Codes: E78.5 - Hyperlipidemia, unspecified Status: Acute Assessment and Plan 1.) NSTEMI - pod #1 pci lad, assymptomatic, ok to dc on aspirin, plavix, lipitor , f/u with me 03/07/17. d/w patient and nurse 2.) Syncope - advised patient not to drive, suspect due to subclavian steal from lsca stenosis Trace Gonzalez MD Mar 06, 2017 10:14
--- NOTE | 2017-03-06 10:55 | HHI.PR ---
Subjective Remarks f/u chest pain No chest pain overnight, cleared by cardiology. Discussed with Dr. Rowe, would like to do CTA before discharge but otherwise good to go. Objective Vitals Vital Signs Date Time Temp Pulse Resp B/P (MAP) Pulse Ox O2 Delivery O2 Flow Rate FiO2 03/06/17 10:00 83 03/06/17 09:00 80 03/06/17 08:00 78 03/06/17 07:44 98.1 78 16 97/56 (70) 98 03/06/17 07:00 88 03/06/17 06:00 86 03/06/17 05:00 82 03/06/17 04:00 78 03/06/17 03:00 77 03/06/17 03:00 98.1 79 16 103/52 (69) 96 03/06/17 02:00 72 03/06/17 01:00 70 03/06/17 00:00 68 03/05/17 23:00 98.9 88 16 113/51 (71) 96 Arterial Line 03/05/17 23:00 77 03/05/17 22:00 78 03/05/17 21:00 86 03/05/17 20:00 86 03/05/17 19:30 97.9 85 16 159/74 (102) 96 140/62 (88) 03/05/17 19:00 84 03/05/17 16:41 98.3 73 18 146/77 (100) 96 03/05/17 12:00 98.2 76 19 130/58 (82) 96 I/O 03/05/17 03/05/17 03/05/17 03/06/17 03/06/17 03/06/17 07:00 15:00 23:00 07:00 15:00 23:00 Intake Total 38 ml 250 ml 1746 ml Output Total 400 ml 900 ml Balance 38 ml -150 ml 846 ml Intake Oral 250 ml 480 ml IV Total 38 ml 1266 ml Output Urine Total 400 ml 900 ml # Voids 1 1 # Bowel Movements 0 Result Diagram: 03/06/1754003/06/17540 Objective Remarks GENERAL: This is a well-nourished, well-developed female patient, sitting up in bed in no apparent distress. SKIN: No rashes, ecchymoses or lesions. Warm and dry. HEENT: Atraumatic. Normocephalic. Pupils equal round and reactive. Supple neck, no carotid bruit. CARDIOVASCULAR: Regular rate and rhythm without murmurs, gallops, or rubs. RESPIRATORY: Clear to auscultation. Breath sounds equal bilaterally. No wheezes , rales, or rhonchi. GASTROINTESTINAL: Abdomen soft, non-tender, nondistended. No guarding. MUSCULOSKELETAL: Extremities without clubbing, cyanosis, or edema. No joint tenderness, effusion, or edema noted. NEUROLOGICAL: Awake and alert. Cranial nerves II through XII intact. Motor and sensory grossly within normal limits. A/P Problem List: (1) Chest pain ICD Code: R07.9 - Chest pain, unspecified Status: Acute (2) Hyperlipidemia ICD Code: E78.5 - Hyperlipidemia, unspecified Status: Acute Assessment and Plan This is a 60-year-old female admitted for chest pain NSTEMI-troponin trending down, EKG showed ST depression, cardiology consulted, status post PCI to LAD. Cleared by cardiology on aspirin, Plavix, Lipitor and Coreg. Follow-up on Tuesday. Subclavian steal-chest CT scan showed possible subclavian steal subclavian artery stenosis 90%, carotid ultrasound showed moderate stenosis and subclavian steal , vascular surgery consulted, discussed with Dr. Rowe, will check CTA. After CTs done, patient may be discharge and follow-up with him in 2 weeks. Discharge today after CT is done. Ruth Corley MD Mar 06, 2017 10:55
[2017-03-06] MEDS ORDERED: CARV3.125 PO (11:05)
[2017-03-06] MEDS ORDERED: PLAV75TA29 PO (11:05)
[2017-03-06] MEDS ORDERED: RAMI2.5C PO (11:05)
[2017-03-06] MEDS ORDERED: LIPI20TA PO (11:05)
[2017-03-06] MEDS ORDERED: ASPI81 PO (11:05)
--- NOTE | 2017-03-06 11:14 | HHI.DS ---
Discharge Summary Admission Date Mar 04, 2017 at 22:07 Discharge Date: Mar 06, 2017 Admitting Diagnosis Chest pain; subclavian aa stenosis (1) Chest pain ICD Code: R07.9 - Chest pain, unspecified Status: Acute (2) Hyperlipidemia ICD Code: E78.5 - Hyperlipidemia, unspecified Status: Acute (3) NSTEMI (non-ST elevated myocardial infarction) ICD Code: I21.4 - Non-ST elevation (NSTEMI) myocardial infarction Diagnosis: Principal (4) Subclavian artery stenosis, left ICD Code: I77.1 - Stricture of artery Diagnosis: Secondary (5) CAD (coronary artery disease) ICD Code: I25.10 - Atherosclerotic heart disease of [place] coronary artery without angina pectoris Diagnosis: Secondary Procedures PCI to LAD. Brief History - From Admission Ms. Russo is a pleasant 61-year-old female patient with a known medical history of dyslipidemia who presented to the ED with chest pain. She states that around 1700 while walking into the mall she began to feel a steady, tight pain between her bilateral shoulder blades, she states the pain radiated to the back of her neck to her left arm, admits to associated diaphoresis and shortness of breath, denies any associated nausea or vomiting, rates the pain a 6/10 on pain scale. Pain lasted roughly 1 hour total. Activity seemed to make it worse, "time" made the pain better. Denies ever having this type of event or discomfort. Was given Aspirin 162 mg in the ED. D-dimer negative. EKG reviewed showing ST HR 104, ST depression seen in the anterior and lateral leads. Troponin 0.06 ,1.5, awaiting third set. Call placed to Dr. Gonzalez with orders to transfer to [facility] to undergo cardiac catheterization. At the time of assessment patient denies any further chest pain or back pain, all symptoms have resolved, no longer dyspneic. PCP is Dr. Merino. Does not have a boom boss. Denies any prior cardiac work up or stress testing. CBC/BMP: 03/06/17 0541 03/06/17 0541 Significant Findings Laboratory Tests Test 03/04/17 18:37 03/05/17 00:12 03/05/17 07:50 03/06/17 05:41 Monocytes (%) (Auto) 9.8 % (0.0-8.0) 8.7 % (0.0-8.0) Calcium Level 8.2 MG/DL (8.5-10.1) 8.3 MG/DL (8.5-10.1) 8.0 MG/DL (8.5-10.1) Alkaline Phosphatase 119 U/L (45-117) Chloride Level 109 MEQ/L (98-107) 113 MEQ/L (98-107) 112 MEQ/L (98-107) Estimat Glomerular Filtration Rate 56 ML/MIN (>89) 72 ML/MIN (>89) 77 ML/MIN (>89) Troponin I 0.06 NG/ML (0.02-0.05) 1.50 NG/ML (0.02-0.05) 1.17 NG/ML (0.02-0.05) B-Type Natriuretic Peptide 101 PG/ML (0-100) Activated Partial Thromboplast Time 44.3 SEC (24.3-30.1) Albumin 3.1 GM/DL (3.4-5.0) Triglycerides Level 184 MG/DL (42-150) 173 MG/DL (42-150) LDL Cholesterol 107 MG/DL (0-99) HDL Cholesterol 34.2 MG/DL (40.0-60.0) PE at Discharge GENERAL: This is a well-nourished, well-developed female patient, sitting up in bed in no apparent distress. SKIN: No rashes, ecchymoses or lesions. Warm and dry. HEENT: Atraumatic. Normocephalic. Pupils equal round and reactive. Supple neck, no carotid bruit. CARDIOVASCULAR: Regular rate and rhythm without murmurs, gallops, or rubs. RESPIRATORY: Clear to auscultation. Breath sounds equal bilaterally. No wheezes , rales, or rhonchi. GASTROINTESTINAL: Abdomen soft, non-tender, nondistended. No guarding. MUSCULOSKELETAL: Extremities without clubbing, cyanosis, or edema. No joint tenderness, effusion, or edema noted. NEUROLOGICAL: Awake and alert. Cranial nerves II through XII intact. Motor and sensory grossly within normal limits. Hospital Course This is a 60-year-old female admitted for chest pain, troponins were elevated, EKG showed ST depression. Cardiology was consulted, patient was taken to [facility], status post PCI to LAD. Cleared by cardiology for discharge on aspirin, Plavix, Lipitor and Coreg. Follow-up on Tuesday. Patient also was found to have subclavian steal and subclavian artery stenosis after a CTA was done. Vascular surgery consulted, carotid ultrasound showed moderate stenosis. Discussed with Dr. Rowe, will check CTA of the carotids. After CTA done, patient may be discharge and follow-up with him in 2 weeks. Pt Condition on Discharge: Good Discharge Disposition: Discharge Home Discharge Time: > 30 minutes Discharge Instructions DIET: Follow Instructions for: Heart Healthy Diet Activities you can perform: Regular-No Restrictions Follow up Referrals: Cardiology - 03/07/17 with Trace Gonzalez MD Vascular Surgery - 2 Weeks with Penelope Reynoso MD New Medications: Atorvastatin (Lipitor) 20 Mg Tab 20 MG PO HS for Cholesterol Management, #30 TAB 0 Refills Aspirin (Tgt Aspirin) 81 Mg Chw 162 MG PO DAILY for CAD, #30 EA Carvedilol (Coreg) 3.125 Mg Tab 3.125 MG PO BID for CAD, #30 TAB Clopidogrel (Plavix) 75 Mg Tab 75 MG PO DAILY for CAD, #30 TAB Ramipril (Ramipril) 2.5 Mg Cap 2.5 MG PO DAILY for HTN, #30 CAP Discontinued Medications: Cyanocobalamin (Vitamin B-12) 1,000 Mcg Subl Unknown Dose SL DAILY for Nutritional Supplement, TAB.SL 0 Refills Ibuprofen (Ibuprofen) 800 Mg Tab 800 MG PO, #40 TAB 0 Refills [Statin] () Unknown Dose Ruth Corley MD Mar 06, 2017 11:13
--- NOTE | 2017-03-06 11:20 | PD.CAR.PN ---
CVT Progress Note Subjective/Hospital Course: 61 year-old with left subclavian stenosis and NSTEMI I was consulted this am to see the patient at [facility], but once I got there i was told that the patient had transferred to [facility] about an hour earlier. 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 Will try to catch up later and complete the consult Thanks Jae 03/05/17 8 PM I finally caught up with the patient patient is now in CV stepdown unit She is awake alert and oriented Full consult is dictated Thanks 03/06/17 Patient status post cardiac catheterization and stent placement She is awake alert and oriented looks very good Left subclavian stenosis is asymptomatic and even if it were mildly symptomatic this would not be a very opportune time to address this considering the patient has just had a cardiac catheterization so from this point patient can be discharged any time because I don't plan to do anything with it at this admission We will order a CTA of the carotids before patient leaves she does have bilateral bruits and I'm really not sure about the level of narrowing on the duplex ultrasound We have to remember the duplex ultrasound is basically fractionated number comparing the flow velocities rather than an anatomical study As soon as patient has CTA she can go home and I'll follow her up in the office in a few weeks Discussed with Dr. Corley Objective: Vital Signs Date Time Temp Pulse Resp B/P (MAP) Pulse Ox O2 Delivery O2 Flow Rate FiO2 03/06/17 10:00 83 03/06/17 09:00 80 03/06/17 08:00 78 03/06/17 07:44 98.1 78 16 97/56 (70) 98 03/06/17 07:00 88 03/06/17 06:00 86 03/06/17 05:00 82 03/06/17 04:00 78 03/06/17 03:00 77 03/06/17 03:00 98.1 79 16 103/52 (69) 96 03/06/17 02:00 72 03/06/17 01:00 70 03/06/17 00:00 68 03/05/17 23:00 98.9 88 16 113/51 (71) 96 Arterial Line 03/05/17 23:00 77 03/05/17 22:00 78 03/05/17 21:00 86 03/05/17 20:00 86 03/05/17 19:30 97.9 85 16 159/74 (102) 96 140/62 (88) 03/05/17 19:00 84 03/05/17 16:41 98.3 73 18 146/77 (100) 96 03/05/17 12:00 98.2 76 19 130/58 (82) 96 Labs: Laboratory Tests Test 03/06/17 05:41 White Blood Count 10.0 TH/MM3 (4.0-11.0) Red Blood Count 4.29 MIL/MM3 (4.00-5.30) Hemoglobin 13.0 GM/DL (11.6-15.3) Hematocrit 39.3 % (35.0-46.0) Mean Corpuscular Volume 91.4 FL (80.0-100.0) Mean Corpuscular Hemoglobin 30.4 PG (27.0-34.0) Mean Corpuscular Hemoglobin Concent 33.2 % (32.0-36.0) Red Cell Distribution Width 14.1 % (11.6-17.2) Platelet Count 215 TH/MM3 (150-450) Mean Platelet Volume 9.8 FL (7.0-11.0) Neutrophils (%) (Auto) 65.2 % (16.0-70.0) Lymphocytes (%) (Auto) 25.3 % (9.0-44.0) Monocytes (%) (Auto) 8.7 % (0.0-8.0) Eosinophils (%) (Auto) 0.4 % (0.0-4.0) Basophils (%) (Auto) 0.4 % (0.0-2.0) Neutrophils # (Auto) 6.5 TH/MM3 (1.8-7.7) Lymphocytes # (Auto) 2.5 TH/MM3 (1.0-4.8) Monocytes # (Auto) 0.9 TH/MM3 (0-0.9) Eosinophils # (Auto) 0.0 TH/MM3 (0-0.4) Basophils # (Auto) 0.0 TH/MM3 (0-0.2) CBC Comment DIFF FINAL Differential Comment Blood Urea Nitrogen 11 MG/DL (7-18) Creatinine 0.76 MG/DL (0.50-1.00) Random Glucose 96 MG/DL (74-106) Calcium Level 8.0 MG/DL (8.5-10.1) Sodium Level 141 MEQ/L (136-145) Potassium Level 3.9 MEQ/L (3.5-5.1) Chloride Level 112 MEQ/L (98-107) Carbon Dioxide Level 23.4 MEQ/L (21.0-32.0) Anion Gap 6 MEQ/L (5-15) Estimat Glomerular Filtration Rate 77 ML/MIN (>89) Total Creatine Kinase 63 U/L (26-192) Triglycerides Level 173 MG/DL (42-150) Cholesterol Level 151 MG/DL (120-200) LDL Cholesterol 82 MG/DL (0-99) HDL Cholesterol 34.2 MG/DL (40.0-60.0) Cholesterol/HDL Ratio 4.41 RATIO Result Diagram: 03/06/17 0541 03/06/17 0541 (1) CAD (coronary artery disease) (2) NSTEMI (non-ST elevated myocardial infarction) (3) PVD (peripheral vascular disease) (4) Syncope (5) Subclavian artery stenosis, left (6) Hyperlipidemia Penelope Reynoso MD Mar 06, 2017 11:20
--- NOTE | 2017-03-06 11:58 | EKG ---
Date Performed: 03/06/2017 Time Performed: 06:25:42 PTAGE: 61 years EKG: Sinus rhythm ST junctional depression is nonspecific Borderline ECG PREVIOUS TRACING : 03/04/2017 18.16 Compared to the prior study, nonspecific ST segment changes have improved. DOCTOR: Loco Baldwin Interpretating Date/Time 03/06/2017 11:56:32
[2017-03-06] MEDS ORDERED: IOHEXOL 350 MG/ML 10 ML VIAL (for RAD DIAG) IVCONTRAST ONE (16:55)
--- NOTE | 2017-03-06 18:09 | RADRPT ---
EXAM DATE/TIME: 03/06/2017 17:04 [facility] COMPARISON: US CAROTID ARTERIES, March 05, 2017, 17:08. CTA THORACIC ABDOMINAL AORTA W 3D RECON, March 04, 2017, 19:50. INDICATIONS : Abnormal ultrasound. IV CONTRAST: 90 cc Omnipaque 350 (iohexol) IV RADIATION DOSE: 25.70 CTDIvol (mGy) MEDICAL HISTORY : Cardiovascular disease. SURGICAL HISTORY : Cholecystectomy. Tubal ligation. ENCOUNTER: Initial ACUITY: 1 day PAIN SCALE: 0/10 LOCATION: Bilateral neck Elevated flow velocities and ICA/CCA ratios have been found to correlate with increased degrees of vessel stenosis, calculated as percentage of diameter relative to a normal segment of distal ICA/CCA. TECHNIQUE: Volumetric scanning was performed using a multirow detector CT scanner. The data was post processed with a variety of visualization algorithms including full-volume maximum intensity projection, multip lanar sliding thin-slab reformation, curved-planar reformation, and surface-rendering techniques. Us ing automated exposure control and adjustment of the mA and/or kV according to patient size, radiatio n dose was kept as low as reasonably achievable to obtain optimal diagnostic quality images. DICOM f ormat image data is available electronically for review and comparison. FINDINGS: AORTIC ARCH: There is a three-vessel origin of the great vessels from the aorta. There is severe focal stenosis se condary to calcific plaquing at the origin of the left subclavian artery on axial image 20. 1 cm dist al to the origin the left subclavian artery is focal critical stenosis of the left subclavian artery secondary to soft plaque deposition or thrombus. This occurs just proximal to the origin of the left vertebral artery. RIGHT CAROTID: Common carotid artery is intact. There is mild calcific plaquing at the carotid bulb without hemodyna mically significant stenosis. External carotid artery is patent. LEFT CAROTID: Common carotid artery is intact. There is mild calcific plaquing of the carotid bulb with slight soft plaque deposition at the origin of the external carotid artery without evidence for hemodynamically significant stenosis. VERTEBRALS: The vertebral arteries have a symmetric diameter. No stenotic lesions are seen. CONCLUSION: There is a severe stenosis of the left subclavian artery origin and focal severe stenosis 1 cm distal to the origin, just proximal to the origin of the left vertebral artery. A focal string sign is pres ent at this level. There is no evidence for hemodynamically significant stenosis of either carotid artery. Zach Combs MD on March 06, 2017 at 18:03 Board Certified Radiologist. This report was verified electronically.
--- NOTE | 2017-03-07 11:54 | MR ---
cc: LIGIA AG MD DATE 03/05/17 PROCEDURE 1. Left heart catheterization 2. Left ventriculography 3. Coronary angiography 4. IFR of the proximal LAD 5. Direct bare metal stent placement to the proximal mid LAD INDICATION Non-STEMI, coronary artery disease. [employer] Class IV angina, acute coronary syndrome, elevated troponin, tobacco use, peripheral vascular disease, near-syncope. PROCEDURAL STATEMENT The patient was brought to the heart catheterization laboratory and prepped and draped in usual sterile fashion. 10 cc of 1% lidocaine was used to locally anesthetize the right common femoral artery. A 4-[place] sheath was successfully placed in the right common femoral artery, 4-[place] JR-4, JL-4 catheters were used to perform right and left coronary angiography, left ventriculography. FINDINGS LV pressures 160/18/20, ejection fraction 65%. Right coronary artery is nondominant. No significant disease angiographically. The LAD is a large transapical vessel with a proximal 40% stenosis and a mid 70% stenosis at a bifurcation with a small diagonal vessel. Left circumflex vessel is a large dominant vessel with no significant disease angiographically. First and second obtuse marginal vessel is a medium-sized vessel with no significant disease angiographically. There is a distal posterolateral artery with no significant disease angiographically. The left posterior descending coronary artery has no significant disease angiographically. The second obtuse marginal vessel has a proximal mid 60% stenosis. It is a 2.5 mm vessel. 6 [place] sheath exchanged for a 4 [place] sheath. A 6-[place] XB 3.0 guide 0.014 volcano pressure wire was placed into the proximal LAD. The introducer was removed and the guide catheter was thoroughly flushed with 30 mL of normal saline. The 0.04 volcano pressure wire was placed into the distal LAD. The IFR was as low as 0.87. The recorded IFR was 0.89. I therefore determined that intervention was indicated based on an IFR of 0.87. A 309 integrity stent was used to directly stent the proximal LAD lesion with one inflation 10 atmospheres for 20 seconds. Stenosis went from 70% to 0% with DALIA-III flow. The diagonal vessel was partially jailed, but the patient had no symptoms postprocedure. The ostium appeared to have perhaps a 50% stenosis which did not appear to be significantly different from prior to beginning of the procedure. Note - we did do an IFR of the diagonal vessel and that was 0.91, FFR of that vessel was 0.87. CONCLUSION 1. Non STEMI culprit 70% proximal LAD lesion with an IFR of 0.89 in a left dominant system as detailed above. 2. 60% stenosis in the second obtuse marginal vessel and the ostium of the second diagonal artery. Note - the second diagonal artery IFR was 0.91 and the IFR of this vessel was 0.87 after 140 mcg per kilogram per minute of adenosine infusion times 3 minutes. 3. Successful PCI with bare metal stent of the proximal LAD from 70% to 0% with DALIA-III flow. 4. Ejection fraction 65%. 5. Recommend Plavix 600 mg p.o. load, then 75 mg once a day for 12-15 months, aspirin 162 mg daily indefinitely. We will treat ____ NCCN guidelines, also Aggrastat drip. MD JENI Mak/ /3:20 PM /11:47 AM
== END 2017-03-06 18:20 | disposition home or self-care (01) | DRG 249 ==
LOC: PHED 18:14 → PHEDA 22:07 → PH3B 22:41 → HCPC 03-05 12:14 → OBSVTOIN 03-05 18:40 → INTOOBSV 03-05 18:40 → OBSVTOIN 03-06 12:57
PROVIDERS: ADMIT Internal Medicine; ATTEND Internal Medicine
PROC: 02703DZ Dilation of Coronary Artery, One Artery with Intraluminal Device, Percutaneous Approach (ICD-10-PCS; principal; 2017-03-05)
PROC: 4A023N7 Measurement of Cardiac Sampling and Pressure, Left Heart, Percutaneous Approach (ICD-10-PCS; 2017-03-05)
PROC: B2111ZZ Fluoroscopy of Multiple Coronary Arteries using Low Osmolar Contrast (ICD-10-PCS; 2017-03-05)
DX: I21.4 Non-ST elevation (NSTEMI) myocardial infarction (principal); G45.8 Other transient cerebral ischemic attacks and related syndromes; I73.9 Peripheral vascular disease, unspecified; E78.5 Hyperlipidemia, unspecified; I25.119 Atherosclerotic heart disease of native coronary artery with unspecified angina pectoris; I77.1 Stricture of artery; I65.23 Occlusion and stenosis of bilateral carotid arteries; R32 Unspecified urinary incontinence; R55 Syncope and collapse; M81.0 Age-related osteoporosis without current pathological fracture; M19.90 Unspecified osteoarthritis, unspecified site; Z87.891 Personal history of nicotine dependence
CPT/HCPCS: 70498; 71010; 71275; 74174; 80048; 80053; 80061; 82550; 83735; 83880; 84484; 85002; 85025; 85379; 85610; 85730; 92928; 93005; 93458; 93571; 93880; 96360; 96361; 96365; 96366; 99152; 99153; C1769; C1887; C1893; G0378; J0153; J0461; J1644; J2250; J3010; J3246; J7030; J7040; Q9967